=== PATIENT | female | born 1985 | race Caucasian/White ===

== ENCOUNTER 2016-12-07 12:37 | Emergency (ER) | payer OTHER ==
[~2016-12-07] VITALS: Ht 165.1 cm; Wt 90.8 kg
[~2016-12-07 12:37] MED LIST: ACHD5005 PO; AMT50T; DCS100C PO; DESV50TA PO; IBP600T1 PO; IBP800T PO; LRZ1T PO; MEDR5TAB4 PO; NAPR-243 PO; ONDAN4ODT PO; ORTHO; OXYC-12 PO; PAXIL 20 MG; PREN1TAB39 PO; SULF1TAB38 PO; TRAM50TA2 PO; TRM50T PO; VISTARIL
[2016-12-07 12:57] LABS: BASOPHILS % (AUTO) 0 % (0-10); EOSINOPHILS # (AUTO) 0.1 10^3/uL (0.0-0.3); EOSINOPHILS % (AUTO) 2 % (0-10); LYMPHOCYTES # (AUTO) 1.7 X 10^3 (1.0-4.0); LYMPHOCYTES % (AUTO) 29 % (12-44); MEAN CORPUSCULAR HEMOGLOBIN 27 PG (25-34); MEAN CORPUSCULAR HGB CONC 33 G/DL (32-36); MEAN CORPUSCULAR VOLUME 81 FL (80-99); MEAN PLATELET VOLUME 11.7 FL (7.4-10.4); MONOCYTES # (AUTO) 0.5 X 10^3 (0.0-1.0); MONOCYTES % (AUTO) 8 % (0-12); NEUTROPHILS # (AUTO) 3.6 X 10^3 (1.8-7.8); NEUTROPHILS % (AUTO) 61 % (42-75); PLATELET COUNT 197 10^3/uL (130-400); RED BLOOD COUNT 4.94 10^6/uL (4.35-5.85); RED CELL DISTRIBUTION WIDTH 14.8 % (10.0-14.5); WHITE BLOOD COUNT 5.9 10^3/uL (4.3-11.0)
--- NOTE | 2016-12-07 12:57 | ED GU-Female ---
General Chief Complaint: -Female Stated Complaint: MENSTRUAL ISSUES (HEAVY BLEEDING) Nursing Triage Note: PT STATES HEAVY MENSTRAL BLEEDING, NORMAL HAS TWO PERIODS A MONTH, CHANGING TAMPONS ONCE AN HOUR FOR THE PAST DAY NON STOP. Nursing Sepsis Screen: No Definite Risk Source: patient Exam Limitations: no limitations History of Present Illness Time seen by provider: 12:54 Initial Comments To ER with reports of heavy vaginal bleeding since yesterday to the point that she is changing tampons about every 1-2 hours. She also has severe abdominal cramping. She's been working with her primary care provider at [facility] , DIRK Clinton about arranging a hysterectomy. Patient states she is having difficulty with her insurance. She has, however, had pelvic ultrasound and colposcopy done by someone from [place] who comes to the clinic once a month (she cannot recall the name). She states that the abnormal menses have been bothering her since March with a bout of bleeding about twice a month. Timing/Duration: just prior to arrival Severity/Quality: moderate, cramping Location: unknown Radiation: none Activities at Onset: none Prior Genitourinary Problems: none Associated Symptoms: No fever/chills, No nausea/vomiting Allergies and Home Medications Allergies Coded Allergies: morphine (Verified Allergy, Severe, SOA, HIVES, 01/29/12) Constitutional: see HPI, No chills, No fever EENTM: see HPI Respiratory: no symptoms reported Cardiovascular: no symptoms reported Genitourinary: no symptoms reported Musculoskeletal: no symptoms reported Skin: no symptoms reported Psychiatric/Neurological: No Symptoms Reported Endocrine: No Symptoms Reported Hematologic/Lymphatic: No Symptoms Reported Past Rypzyud-Ejrjno-Wwdguz Hx Patient Social History Recent Foreign Travel: No Contact w/Someone Who Travel: No Recent Infectious Disease Expo: No Immunizations Up To Date Tetanus Booster (TDap): More than 5yrs Surgeries HX Surgeries: Yes (THA.;TONSILS AND ADAMARIS.;;LOOP PROCEDURE) Respiratory Hx Respiratory Disorders: No Cardiovascular Hx Cardiac Disorders: No Neurological Hx Neurological Disorders: No Reproductive System Hx Reproductive Disorders: No Sexually Transmitted Disease: Yes (HPV) 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 Genitourinary Hx Genitourinary Disorders: No Gastrointestinal Hx Gastrointestinal Disorders: No Musculoskeletal Hx Musculoskeletal Disorders: No Endocrine Hx Endocrine Disorders: No HEENT HX ENT Disorders: No Psychosocial Hx Psychiatric Problems: No Integumentary HX Skin/Integumentary Disorder: No Blood Transfusions Hx Blood Disorders: No Family Medical History Significant Family History: No Pertinent Family Hx Physical Exam Vital Signs Vital Sign - Last 12Hours 12/07/16 12:49 Temp 98.4 Pulse 75 Resp 20 B/P (MAP) 146/97 Pulse Ox 97 O2 Delivery Room Air Capillary Refill : Less Than 3 Seconds General Appearance: WD/WN, no apparent distress HEENT: PERRL/EOMI, normal ENT inspection Neck: non-tender, full range of motion Cardiovascular: regular rate, rhythm, no murmur Respiratory: normal breath sounds, no respiratory distress, no accessory muscle use Gastrointestinal: normal bowel sounds, non tender, soft Extremities: normal range of motion, non-tender Neurologic/Psychiatric: alert, normal mood/affect, oriented x 3 Skin: normal color Comments She does request something for pain though she requests that it not be narcotic as she is a former IV drug user. Benadryl and Toradol ordered Progress/Results/Core Measures Results/Orders Lab Results Laboratory Tests Test 12/07/16 12:50 12/07/16 13:00 Range/Units White Blood Count 5.9 4.3-11.0 10^3/uL Red Blood Count 4.94 4.35-5.85 10^6/uL Hemoglobin 13.2 11.5-16.0 G/DL Hematocrit 40 35-52 % Mean Corpuscular Volume 81 80-99 FL Mean Corpuscular Hemoglobin 27 25-34 PG Mean Corpuscular Hemoglobin Concent 33 32-36 G/DL Red Cell Distribution Width 14.8 H 10.0-14.5 % Platelet Count 197 130-400 10^3/uL Mean Platelet Volume 11.7 H 7.4-10.4 FL Neutrophils (%) (Auto) 61 42-75 % Lymphocytes (%) (Auto) 29 12-44 % Monocytes (%) (Auto) 8 0-12 % Eosinophils (%) (Auto) 2 0-10 % Basophils (%) (Auto) 0 0-10 % Neutrophils # (Auto) 3.6 1.8-7.8 X 10^3 Lymphocytes # (Auto) 1.7 1.0-4.0 X 10^3 Monocytes # (Auto) 0.5 0.0-1.0 X 10^3 Eosinophils # (Auto) 0.1 0.0-0.3 10^3/uL Basophils # (Auto) 0.0 0.0-0.1 10^3/uL My Orders Orders - LINDSEY SOTO APRN Cbc With Automated Diff (12/07/16 12:42) Urine Bedside (12/07/16 12:42) Ua Culture If Indicated (12/07/16 12:42) Diphenhydramine Injection (Benadryl Inje (12/07/16 13:00) Ketorolac Injection (Toradol Injection) (12/07/16 13:00) Medications Given in ED Current Medications Medications Dose Ordered Sig/Stoney Route Start Time Stop Time Status Last Admin Dose Admin Diphenhydramine HCl 25 mg ONCE ONCE IM 12/07/16 13:00 12/07/16 13:01 DC 12/07/16 13:11 25 MG Ketorolac Tromethamine 60 mg ONCE ONCE IM 12/07/16 13:00 12/07/16 13:01 DC 12/07/16 13:11 60 MG Vital Signs/I&O Vital Sign - Last 12Hours 12/07/16 12/07/16 12/07/16 12:49 13:11 13:11 Temp 98.4 98.4 98.4 Pulse 75 Resp 20 B/P (MAP) 146/97 Pulse Ox 97 O2 Delivery Room Air Blood Pressure Mean: 113 Departure Impression Impression: Primary Impression: Menorrhagia Disposition: 01 HOME, SELF-CARE Condition: Stable Departure-Patient Inst. Decision time for Depature: 13:17 Referrals: [facility] (PCP) Primary Care Physician DIRK CLINTON (Family) Primary Care Physician Patient Instructions: Menstrual Cramps (DC) Add. Discharge Instructions: 1. Follow-up with Dr. Cheng or your regular provider 2. Return to ER for any concerns 3. Ibuprofen 800 mg every 8 hours. This will reduce the blood flow to your uterine lining which will reduce the bleeding in 1-2 days. Return to ER for any lightheadedness or shortness of breath All discharge instructions reviewed with patient and/or family. Voiced understanding. Work/School Note: Work Release Form Date Seen in the Emergency Department: Dec 07, 2016 Return to Work: Dec 10, 2016 LINDSEY SOTO APRN Dec 07, 2016 12:57
[2016-12-07] MEDS ORDERED: KETOROLAC 60 MG/2 ML VIAL IM ONE (13:00)
[2016-12-07] MEDS ORDERED: diphenhydrAMINE 50 MG/ML INJ (BENADRYL) IM ONE (13:00)
[2016-12-07 13:11] LABS: BILIRUBIN,URINE NEGATIVE (NEGATIVE); KETONES,URINE NEGATIVE (NEGATIVE); LEUKOCYTE ESTERASE ,URINE 1+ (NEGATIVE); NITRITE,URINE NEGATIVE (NEGATIVE); PH,URINE 7 (5-9); PROTEIN,URINE NEGATIVE (NEGATIVE); UROBILINOGEN,URINE NORMAL (NORMAL)
[2016-12-07 13:19] LABS: WBC,URINE 0-2 /HPF
[2016-12-07 13:31] VITALS: BP 146/97
--- OUTSIDE RECORDS SUMMARY | 2016-12-08 17:51 | XMS REPORT | Continuity of Care Document ---
Author Author [employer] Organization [employer] Address Unknown Phone Unavailable Care Team Providers Care Head Host/Hostess Name Role Phone [employer] Unavailable Unavailable Problems Medications Allergies, Adverse Reactions, Alerts Immunizations Results Vital Signs Encounters Procedures Plan of Care Social History Assessment and Plan Family History Value Date Source Advance Directives Order Name Results Value Date Source
--- OUTSIDE RECORDS SUMMARY | 2016-12-08 17:51 | XMS REPORT ---
Author Author DIRK CLINTON Organization [employer] Address Unknown Phone Unavailable Care Team Providers Care Professor Of Latin American Studies Name Role Phone DIRK CLINTON CP Unavailable Allergies, Adverse Reactions, Alerts Substance Reaction Event Type Morphine Sulfate shortness of breath Drug Allergy Problems Problem Type Condition Code Onset Dates Condition Status Problem Chronic hepatitis C without mention of hepatic coma 070.54 Active Problem Other, mixed, or unspecified nondependent drug abuse, unspecified 305.90 Active Problem Dysuria 788.1 Active Medications No Known Medications Results No Known Results Summary Purpose [employer] Submission
--- OUTSIDE RECORDS SUMMARY | 2016-12-08 17:52 | XMS REPORT | Continuity of Care Document ---
Author Author [facility] Organization [facility] Address Unknown Phone Unavailable Allergies Medications Problems Date Dx Coded Attending Type Code Diagnosis Diagnosed By 12/05/2008 DIRK CLINTON APRN 461.9 SINUSITIS ACUTE 12/05/2008 DIRK CLINTON APRN 919.4 INSECT BITE NONVENOMOUS OF OTHER MULTIPLE AND UNSPECIFIED SITES WITHOUT INFECTION 12/05/2008 DENNIS JACOBS DO 461.9 SINUSITIS ACUTE 12/05/2008 DENNIS JACOBS DO K 919.4 INSECT BITE NONVENOMOUS OF OTHER MULTIPLE AND UNSPECIFIED SITES WITHOUT INFECTION 05/28/2014 DIRK CLINTON APRN 070.54 CHRONIC HEPATITIS C WITHOUT HEPATIC COMA 05/28/2014 DIRK CLINTON APRN L 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 USE 05/28/2014 DENNIS JACOBS DO K 070.54 CHRONIC HEPATITIS C WITHOUT HEPATIC COMA 05/28/2014 DENNIS JACOBS DO K 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 USE Procedures Code [place] [address] CMP 05/28/2014 78332 CBC 05/28/2014 91945 PT/INR 2013 76785 HIV ANTIBODIES (RML) 05/28/2014 47556 HEP B SURFACE ANTIBODY 05/28/2014 50094 HEP A ANTIBODY, IGM (RML) 05/28/2014 64796 HEP B SURFACE ANTIGEN (STATE) 05/28/2014 32355 HEP C PCR QUANT W/UMESH 05/28/2014 82275 [employer] 2013 03088 CMP 05/28/2014 21337 CBC 05/28/2014 75653 PT/INR 2013 31782 HIV ANTIBODIES (RML) 05/28/2014 43712 HEP B SURFACE ANTIBODY 05/28/2014 85422 HEP A ANTIBODY, IGM (RML) 05/28/2014 35772 HEP B SURFACE ANTIGEN (STATE) 05/28/2014 65159 HEP C PCR QUANT W/UMESH 05/28/2014 76996 [employer] 2013 48030 ROUTINE VENIPUNCTURE 05/30/2014 23577 CBC 05/30/2014 32624 CMP 05/30/2014 34798 PT/INR 2013 18651 HIV ANTIBODIES (RML) 05/30/2014 57197 HEP B CORE ANTIBODY, IGM 05/30/2014 41370 HEP B SURFACE ANTIBODY 05/30/2014 06289 HEP A ANTIBODY, IGM (RML) 05/30/2014 49362 [employer] 2013 Results Encounters ACCT No. Visit Date/Time Discharge Status Pt. Type Provider Facility Loc./Unit Complaint [id number] 03/02/2013 13:09:00 2012 15:00:00 DIS Emergency [id number] 02/25/2013 12:02:00 2012 17:00:00 DIS Emergency
== END 2016-12-07 13:31 | disposition home or self-care (01) ==
LOC: EDUNIT# 12:37 → ER 12:40
DX: N92.0 Excessive and frequent menstruation with regular cycle (principal); Z90.49 Acquired absence of other specified parts of digestive tract; Z87.59 Personal history of other complications of pregnancy, childbirth and the puerperium; Z98.51 Tubal ligation status; Z86.19 Personal history of other infectious and parasitic diseases
CPT/HCPCS: 36415; 81000; 84703; 85025; 96372; 99284

== ENCOUNTER → 2017-01-15 | Outpatient (CLI) | payer OTHER ==
--- NOTE | 2017-01-15 18:56 | Diagnostic Imaging Report ---
INDICATION: Menorrhagia. Pelvic sonogram. FINDINGS: Transabdominal and endovaginal scanning of the pelvis was performed. The uterus measures 9.6 x 5.0 x 4.8 cm. Endometrial stripe is 8 mm. The myometrium and endometrium appear normal. The ovaries are normal in size and have normal blood flow. There is a 3 cm cyst on the right ovary that has simple cyst features. IMPRESSION: A 3 cm simple cyst right ovary. Pelvic sonogram otherwise unremarkable. Dictated by: Dictated on workstation # [id number]
== END ==
LOC: RAD 13:16
PROVIDERS: ATTEND Nurse Practitioner Family
DX: N83.201 Unspecified ovarian cyst, right side (principal); N92.1 Excessive and frequent menstruation with irregular cycle
CPT/HCPCS: 76830; 76856

== ENCOUNTER 2018-09-16 10:05 | Emergency (ER) | payer OTHER ==
[~2018-09-16] VITALS: Ht 162.6 cm; Wt 108.9 kg
[2018-09-16 10:28] LABS: BASOPHILS % (AUTO) 0 % (0-10); EOSINOPHILS # (AUTO) 0.2 10^3/uL (0.0-0.3); EOSINOPHILS % (AUTO) 3 % (0-10); HEMATOCRIT 41 % (35-52); HEMOGLOBIN 13.5 G/DL (11.5-16.0); LYMPHOCYTES # (AUTO) 1.4 X 10^3 (1.0-4.0); LYMPHOCYTES % (AUTO) 21 % (12-44); MEAN CORPUSCULAR HEMOGLOBIN 27 PG (25-34); MEAN CORPUSCULAR HGB CONC 33 G/DL (32-36); MEAN CORPUSCULAR VOLUME 80 FL (80-99); MEAN PLATELET VOLUME 11.2 FL (7.4-10.4); MONOCYTES # (AUTO) 0.6 X 10^3 (0.0-1.0); MONOCYTES % (AUTO) 9 % (0-12); NEUTROPHILS # (AUTO) 4.6 X 10^3 (1.8-7.8); NEUTROPHILS % (AUTO) 68 % (42-75); PLATELET COUNT 230 10^3/uL (130-400); RED CELL DISTRIBUTION WIDTH 14.1 % (10.0-14.5); WHITE BLOOD COUNT 6.8 10^3/uL (4.3-11.0)
[2018-09-16] MEDS ORDERED: LIDOCAINE 2% VISCOUS 15 ML UDC PO ONE (10:30)
[2018-09-16] MEDS ORDERED: ANTACID SUSP 30 ML UDC (MYLANTA) PO ONE (10:30)
--- OUTSIDE RECORDS SUMMARY | 2018-09-16 10:43 | XMS REPORT | Clinical Summary ---
Author Author Admin, E Organization [facility] Address Unknown Phone Unavailable Allergies, Adverse Reactions, Alerts Allergy Name Reaction Description Start Date Severity Status Provider MORPHINE Critical Active Isidra Boland RN Conditions or Problems Problem Name Problem Code Onset Date Status Entry Date Provider Comment Standard Description Annotate Menorrhea, premenopausal 627.0 Active Jerry Wells MD Premenopausal menorrhagia Medication List Medication Instructions Start Date Stop Date Generic Name NDC Status Provider Patient Instruction No Drug Therapy Prescribed - none known did ask Isidra Boland RN Vital Signs Date Name Value Unit Range Description blood pressure, diastolic 82 mm[Hg] BP bhakta blood pressure, systolic 142 mm[Hg] BP sys height E&M 65 [in_us] Bdy height pulse rate E&M 63 /min Heart rate temperature E&M 95.5 [degF] Body temperature weight E&M 223 [lb_av] Weight Measured Encounters Code Encounter Date Provider Facility CPT-53698 Level 4 New Patient 16:28:07 CDT Jerry Wells MD [facility]
--- OUTSIDE RECORDS SUMMARY | 2018-09-16 10:43 | XMS REPORT | Clinical Summary ---
Author Author Admin, E Organization [facility] Address Unknown Phone Unavailable Allergies, Adverse Reactions, [...] Measured Encounters Code Encounter Date Provider Facility CPT-68468 Level 4 New Patient 16:28:07 CDT Jerry Wells MD [facility]
--- OUTSIDE RECORDS SUMMARY | 2018-09-16 10:43 | XMS REPORT | Clinical Summary ---
Author Author Admin, E Organization [facility] Address Unknown Phone Unavailable Allergies, Adverse Reactions, Alerts Allergy Name Reaction Description Start Date Severity Status Provider MORPHINE Critical Active Isidra Boland RN Conditions or Problems Problem Name Problem Code Onset Date Status Entry Date Provider Comment Standard Description Annotate Problems Unknown Active Medication List Medication Instructions Start Date Stop Date Generic Name NDC Status Provider Patient Instruction Drug Treatment Unknown - unknown
--- OUTSIDE RECORDS SUMMARY | 2018-09-16 10:43 | XMS REPORT | Clinical Summary ---
Author Author Admin, E Organization [facility] Address Unknown Phone Unavailable Allergies, Adverse Reactions, [...] Measured Encounters Code Encounter Date Provider Facility CPT-06718 Level 4 New Patient 16:28:07 CDT Jerry Wells MD [facility]
--- OUTSIDE RECORDS SUMMARY | 2018-09-16 10:43 | XMS REPORT ---
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.0 Active 289789340 Problem Chronic hepatitis C without mention of hepatic coma 070.54 Active 460455110 Problem Other, mixed, or unspecified nondependent drug abuse, unspecified 305.90 Active 584520397 ALLERGIES No Information ENCOUNTERS Encounter Location Date Diagnosis [place] [id number] [place] [address] Dec, [place] [address] [address] Dec, [place] [id number] [place] [address] Dec, Menorrhagia with irregular cycle N92.1 [place] [id number] [place] [address]151 Aug, [place] [id number] [place] [address] Aug, Atypical squamous cells of undetermined significance on cytologic smear of cervix (ASC-US) R87.610 and HPV (human papilloma virus) infection A63.0 [place] [id number] [place] [address]- [address] Jul, [place] [id number] [place] [address]- [address] Jul, Routine gynecological examination Z01.419 and Trichomonal vaginitis A59.01 [facility] [address] [facility] [id number] [address] Apr, General medical exam Z00.00 [facility] [address] [id number] [address] Mar, [facility] [address] [facility] [id number] [place] [address] Aug, [facility] [address] [id number] [address] Aug, [facility] [address] [facility] [id number] [place] [address]- [address] Jul, [facility] [address] [facility] [id number] [place] [address]- [address] Jul, [facility] [address] [facility] [id number] [place] [address]- [address] Jul, [facility] [address] [facility] [id number] [address] Jul, [facility] [id number] [place] [address]- [address]58 Jul, [facility] [address] [id number] [address] May, [facility] [address] [facility] [id number] [place] [address] May, [facility] [address] [facility] [id number] [place] [address] May, [facility] [address] [facility] [id number] [place] [address] May, [facility] [address] [facility] [id number] [place] [address] May, [facility] [address] [address] May, [facility] [id number] [address] May, [facility] [address] [address] May, [facility] [address] [address] May, [facility] [address] [address] May, [facility] [address] [address] Apr, [facility] [id number] [place] [address] 609823- 28[address] Apr, [facility] [address] [address] Apr, [facility] [address] [address] Apr, [facility] [id number] [address] Nov, IMMUNIZATIONS No Known Immunizations SOCIAL HISTORY Never Assessed REASON FOR VISIT Referral PLAN OF CARE VITAL SIGNS MEDICATIONS Unknown Medications RESULTS No Results PROCEDURES No Known procedures INSTRUCTIONS MEDICATIONS ADMINISTERED No Known Medications MEDICAL (GENERAL) HISTORY Type Description Date Medical History IV Meth and Heroine Abuse 2013 Medical History Hepatitis C Surgical History tonsillectomy and adenoidectomy 1990 Surgical History cholecystectomy 2004 Surgical History ganglion cyst 2000 Hospitalization History of children Hospitalization History surgeries listed above
--- OUTSIDE RECORDS SUMMARY | 2018-09-16 10:43 | XMS REPORT | Clinical Summary ---
Author Author Admin, E Organization [facility] Address Unknown Phone Unavailable Allergies, Adverse [...] Measured Encounters Code Encounter Date Provider Facility CPT-33099 Level 4 New Patient 16:28:07 CDT Jerry Wells MD [facility]
--- OUTSIDE RECORDS SUMMARY | 2018-09-16 10:43 | XMS REPORT ---
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 Active 723027182 Problem Menorrhagia with irregular cycle N92.1 Active 132046734 Problem Other chronic pain G89.29 Active 90441008 Problem Chronic hepatitis C without hepatic coma B18.2 Active 165299640 ALLERGIES No Information ENCOUNTERS Encounter Location Date Diagnosis [place] [id number] [place] [address] 49861- 2676 11 Jul, 2018 Weight gain R63.5 [place] [id number] [place] [address] 30984- 3596 May, [place] [id number] [place] [address] 39731- 4929 Apr, Morbid obesity due to excess calories E66.01 [place] [id number] [place] [address] 58325- 0173 14 Apr, 2018 BMI 40.0-44.9, adult Z68.41 and Morbid obesity due to excess calories E66.01 [place] [address] [place] [address] 69955- 2820 Mar, [place] [id number] [place] [address] 38429- 4807 Mar, Morbid obesity due to excess calories E66.01 [place] [id number] [place] [address] 21048- 5573 Feb, [place] [address] [address] 8070 15 Feb, 2018 BMI 40.0-44.9, adult Z68.41 [facility] [address] [place] [address] 33900- 5760 Jan, BMI 40.0-44.9, adult Z68.41 and Non morbid obesity E66.9 [facility] [address] [place] [address] 95736- 2422 Dec, Non morbid obesity E66.9 [facility] [id number] [place] [address] 82392- 5494 Nov, Rash R21 ; Other chronic pain G89.29 ; Pain in right hip M25.551 and Pain in right knee M25.561 [facility] [address], [place] [address]- 7276 Oct, Right hip pain M25.551 [facility] [id number] [place] [address] 84336- 8452 Oct, [facility] [id number] [place] [address] 16967- 0552 Oct, Other chronic pain G89.29 and Pain in right hip M25.551 [facility] [address] [address]- 4480 Oct, [facility] [address] [place] [address] 14756- 8800 Oct, Right hip pain M25.551 [facility] [address] [address]- 0896 Oct, Right hip pain M25.551 [facility] [address] [address]- 6917 Dec, [facility] [address], [place] [address]- 3713 Dec, [facility] [id number] [place] [address] 06286- 8925 Dec, Menorrhagia with irregular cycle N92.1 [facility] [address] 189591- 6546 Aug, [facility] [id number] [place] [address] 72071- 7839 Aug, Atypical squamous cells of undetermined significance on cytologic smear of cervix (ASC-US) R87.610 and HPV (human papilloma virus) infection 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.0 [facility] [id number] [place] [address] 309509- 7760 Jul, [facility] [id number] [place] [address] 50618- 7647 Jul, Routine gynecological examination Z01.419 and Trichomonal vaginitis A59.01 [facility] [id number] [place] [address] 39051- 4028 Apr, General medical exam Z00.00 [facility] [id number] [place] [address] 63726- 2769 Mar, [facility] [id number] [place] [address] 36649- 3365 Aug, [facility] [id number] [place] [address] 86769- 9325 Aug, [facility] [id number] [place] [address] 60983- 9195 Jul, [facility] [id number] [place] [address] 304593- 2628 Jul, [facility] [id number] [place] [address] 54273162- 8307 Jul, [facility] [id number] [place] [address] 243711- 8548 Jul, [facility] [id number] [place] [address] 64130- 7448 Jul, [facility] [address] [facility] [id number] [address]- 1676 May, [facility] [address] [facility] [id number] 6065 May, [facility] [address] [facility] [id number] [address]- 0727 May, [facility] [address] [facility] [id number], [place] [address]- 1208 May, [facility] [address] [facility] [id number], [place] [address]- 2543 May, [facility] [address] [facility] [id number] [address]- 1569 May, [facility] [address], [place] [address]- 7085 May, [facility] [address] [facility] [id number], [place] [address]- 9957 May, [facility] [address] [facility] [id number][place] [address]- 6755 May, [facility] [address] [facility] [id number][place] [address]- 3592 May, [facility] [address] [facility] [id number], [place] [address]- 7782 Apr, [facility] [address] [facility] [id number] [address]- 4547 Apr, [facility] [address] [facility] [id number] [address]- 8406 Apr, [facility] [address] [facility] [id number][place] 0387 Apr, [facility] [address] [facility] [id number][place] 9389 Nov, IMMUNIZATIONS No Known Immunizations SOCIAL HISTORY Never Assessed REASON FOR VISIT [facility] PLAN OF CARE VITAL SIGNS MEDICATIONS Unknown Medications RESULTS No Results PROCEDURES No Known procedures INSTRUCTIONS MEDICATIONS ADMINISTERED No Known Medications MEDICAL (GENERAL) HISTORY Type Description Date Medical History IV Meth and Heroine Abuse 2013 Medical History Hepatitis C Surgical History tonsillectomy and adenoidectomy 1990 Surgical History cholecystectomy 2004 Surgical History ganglion cyst 2000 Surgical History partial hysterectomy 2017 Hospitalization History of children Hospitalization History surgeries listed above
--- OUTSIDE RECORDS SUMMARY | 2018-09-16 10:43 | XMS REPORT | Clinical Summary ---
Author Author Admin, E Organization [facility] Address Unknown Phone Unavailable Allergies, [...]
--- OUTSIDE RECORDS SUMMARY | 2018-09-16 10:44 | XMS REPORT ---
Author Author Migration, Doctor Organization [facility] Address Unknown Phone Unavailable Care Team Providers Care Instructional Paraprofessional Name Role Phone Migration, Doctor Unavailable Unavailable PROBLEMS Type Condition ICD9-CM Code HVZ30-AU Code Onset Dates Condition Status SNOMED Code Problem Non morbid obesity E66.9 Active 927327418 Problem Morbid obesity due to excess calories E66.01 Active 646131245 Problem HPV (human papilloma virus) infection A63.0 Active 413067700 Problem Menorrhagia with irregular cycle N92.1 Active 886887137 Problem Other chronic pain G89.29 Active 72483032 Problem Chronic hepatitis C without hepatic coma B18.2 Active 242316942 ALLERGIES No Information ENCOUNTERS Encounter Location Date Diagnosis [place] [id number] [place] [address] 59043- 1865 11 Jul, 2018 Weight gain R63.5 [place] [id number] [place] [address] 45688- 8049 May, [place] [id number] [place] [address] 46600- 6609 Apr, Morbid obesity due to excess calories E66.01 [place] [id number] [place] [address] 33156- 2496 14 Apr, 2018 BMI 40.0-44.9, adult Z68.41 and Morbid obesity due to excess calories E66.01 [place] [address] [place] [address] 52833- 6837 Mar, [place] [id number] [place] [address] 14640- 6794 Mar, Morbid obesity due to excess calories E66.01 [place] [id number] [place] [address] 48827- 6580 Feb, [place] [address], [place] [address]- 6204 15 Feb, 2018 BMI 40.0-44.9, adult Z68.41 [facility] [address] [place] [address] 70884- 3001 Jan, BMI 40.0-44.9, adult Z68.41 and Non morbid obesity E66.9 [facility] [address] [place] [address] 94077- 3370 Dec, Non morbid obesity E66.9 [facility] [id number] [place] [address] 52524- 9825 Nov, Rash R21 ; Other chronic pain G89.29 ; Pain in right hip M25.551 and Pain in right knee M25.561 [facility] [address], [place] [address]- 5203 Oct, Right hip pain M25.551 [facility] [id number] [place] [address] 37379- 1853 Oct, [facility] [id number] [place] [address] 79338- 1827 Oct, Other chronic pain G89.29 and Pain in right hip M25.551 [facility] [address], [place] [address]- 0079 Oct, [facility] [address] [place] [address] 01691- 3660 Oct, Right hip pain M25.551 [facility] [address], [place] [address]- 0206 Oct, Right hip pain M25.551 [facility] [address], [place] [address]- 0239 Dec, [facility] [address], [place] [address]- 6744 Dec, [facility] [id number] [place] [address] 87615- 9399 Dec, Menorrhagia with irregular cycle N92.1 [facility] [address] 040521- 9999 Aug, [facility] [id number] [place] [address] 89939- 0300 Aug, Atypical squamous cells of undetermined significance on cytologic smear of cervix (ASC-US) R87.610 and HPV (human papilloma virus) infection A63.0 [facility] [id number] [place] [address] 202276- 9488 Jul, [facility] [id number] [place] [address] 15532- 6840 Jul, Routine gynecological examination Z01.419 and Trichomonal vaginitis A59.01 [facility] [id number] [place] [address] 97599- 9879 Apr, General medical exam Z00.00 [facility] [id number] [place] [address] 27028- 5132 Mar, [facility] [id number] [place] [address] 40916- 2529 Aug, [facility] [id number] [place] [address] 92218- 9752 Aug, [facility] [id number] [place] [address] 98832- 5299 Jul, [facility] [id number] [place] [address] 932275- 4075 Jul, [facility] [id number] [place] [address] 86156207- 0543 Jul, [facility] [id number] [place] [address] 540567- 6949 Jul, [facility] [id number] [place] [address] 91126- 9098 Jul, [facility] [address] [facility] [id number], [place] [address]- 2218 May, [facility] [address] [facility] [id number] 8600 May, [facility] [address] [facility] [id number], [place] [address]- 7362 May, [facility] [address] [facility] [id number], [place] [address]- 7896 May, [facility] [address] [facility] [id number], [place] [address]- 1047 May, [facility] [address] [facility] [id number], [place] [address]- 5516 May, [facility] [address], [place] [address]- 0505 May, [facility] [address] [facility] [id number], [place] [address]- 1396 May, [facility] [address] [facility] [id number], [place] [address]- 1348 May, [facility] [address] [facility] [id number], [place] [address]- 0189 May, [facility] [address] [facility] [id number], [place] [address]- 0827 Apr, [facility] [address] [facility] [id number], [place] [address]- 1956 Apr, [facility] [address] [facility] [id number], [place] [address]- 2837 Apr, [facility] [address] [facility] [id number][place]- 1591 Apr, [facility] [address] [facility] [id number]- 0070 Nov, IMMUNIZATIONS No Known Immunizations SOCIAL HISTORY Never Assessed REASON FOR VISIT [facility] PLAN OF CARE VITAL SIGNS MEDICATIONS Medication Instructions Dosage Frequency Start Date End Date Duration Status amitriptyline 25 mg 1 tablet by Oral route 1 time per day Jul, Active Pyridium 200 mg 1 tablet by Oral route 3 times per day for 3 day(s) for bladder pain Jul, Active Paxil 20 mg 1 tablet by Oral route 1 time per day Jul, Active RESULTS No Results PROCEDURES No Known procedures [...]
--- OUTSIDE RECORDS SUMMARY | 2018-09-16 10:44 | XMS REPORT ---
Author Author RIVAS MICHAELS Organization [facility] Address [address] [place] [address] Care Team Providers Care Conveyor System Dispatcher Name Role Phone RIVAS MICHAELS Unavailable PROBLEMS Type Condition ICD9-CM Code UBR27-LN Code Onset Dates Condition Status SNOMED Code Problem Morbid obesity due to excess calories E66.01 Active 067995560 Problem Non morbid obesity E66.9 Active 623547737 Problem Menorrhagia with irregular cycle N92.1 Active 633892602 Problem HPV (human papilloma virus) infection A63.0 Active 852690778 Problem Chronic hepatitis C without hepatic coma B18.2 Active 793557526 Problem Other chronic pain G89.29 Active 50520915 ALLERGIES No Information ENCOUNTERS Encounter Location Date Diagnosis [place] [address] [address]- 9902 Apr, [place] [address] 62409- 3846 Mar, [place] [address] 85112- 2648 Mar, Morbid obesity due to excess calories E66.01 [place] [id number] [place] [address] 49955- 4267 16 Feb, 2018 [place] [address] 15938- 7376 Feb, BMI 40.0-44.9, adult Z68.41 [place] [address] 79065- 4471 Jan, BMI 40.0-44.9, adult Z68.41 and Non morbid obesity E66.9 [place] [address] 01126- 5385 Dec, Non morbid obesity E66.9 [facility] [id number] [place] [address] 64391- 8101 Nov, Rash R21 ; Other chronic pain G89.29 ; Pain in right hip M25.551 and Pain in right knee M25.561 [facility] [id number] [place] [address] 56281- 0466 Oct, Right hip pain M25.551 [facility] [id number] [place] [address] 79874- 0351 Oct, [facility] [address] [id number] [place] [address] 09089- 7083 Oct, Other chronic pain G89.29 and Pain in right hip M25.551 [facility] [id number] [place] [address] 14880- 9176 Oct, [facility] [id number] [place] [address] 94711- 2397 Oct, Right hip pain M25.551 [facility] [id number] [place] [address] 69011- 9084 Oct, Right hip pain M25.551 [facility] [id number] [place] [address] 25418- 4631 Dec, [facility] [id number] [place] [address] 40500- 5741 Dec, [facility] [id number] [place] [address] 43569- 2459 Dec, Menorrhagia with irregular cycle N92.1 [facility] [id number] [place] [address] 07035- 6183 Aug, [facility] [address] [place] [address] 05698- 7439 Aug, Atypical squamous cells of undetermined significance on cytologic smear of cervix (ASC-US) R87.610 and HPV (human papilloma virus) infection A63.0 [facility] [address] [address]- 9483 Jul, [facility] [id number] [place] [address] 779061- 1985 Jul, Routine gynecological examination Z01.419 and Trichomonal vaginitis A59.01 [facility] [id number] [place] [address] 265798- 1149 Apr, General medical exam Z00.00 [facility] [address], [place] [address]- 8052 Mar, [facility] [id number] [place] [address] 78090- 4652 Aug, [facility] [id number] [place] [address] 37979- 8097 Aug, [facility] [address] [place] [address] 52213- 5339 Jul, [facility] [address] [address]- 4976 Jul, [facility] [address], [place] [address]- 3545 Jul, [facility] [address], [place] [address]- 0363 Jul, [facility] [address], [place] [address]- 5657 Jul, [facility] [address]- 0831 May, [facility] [id number] [place] [address] 151762- 7636 May, [facility] [address]- 0792 May, [facility] [address], [place] [address]- 3258 May, [facility] [address] 8936 May, [facility] [address] [facility] [id number]- 9542 May, [facility] [address], [place] [address]- 6495 May, [facility] [address], [place] [address]- 5874 May, [facility] [address]- 7216 May, [facility] [address] 5508 May, [facility] [address], [place] [address]- 8521 Apr, [facility] [address], [place] [address]- 8007 Apr, [facility] [address], [place] [address]- 1809 Apr, [facility] [address] [place] [id number], [place] [address]- 6847 Apr, [facility] [address] [place] [id number] 0738 Nov, IMMUNIZATIONS No Known Immunizations SOCIAL HISTORY Never Assessed REASON FOR VISIT requesting return call/ PLAN OF CARE VITAL SIGNS MEDICATIONS Unknown Medications RESULTS No Results PROCEDURES No Known procedures INSTRUCTIONS MEDICATIONS ADMINISTERED No Known Medications MEDICAL (GENERAL) HISTORY Type Description Date Medical History IV Meth and Heroine Abuse 2013 Medical History Hepatitis C Surgical History tonsillectomy and adenoidectomy 1990 Surgical History cholecystectomy 2005 Surgical History ganglion cyst 2001 Surgical History partial hysterectomy 2017 Hospitalization History of children Hospitalization History surgeries listed above
--- OUTSIDE RECORDS SUMMARY | 2018-09-16 10:44 | XMS REPORT ---
Author Author RIVAS MICHAELS Organization [facility] Address [address] [place] [address] Care Team Providers Care Freight Coordinator Name Role Phone RIVAS MICHAELS Unavailable PROBLEMS Type Condition ICD9-CM Code WEA35-SF Code Onset Dates Condition Status SNOMED Code Problem Non morbid obesity E66.9 Active 725749715 Problem Chronic hepatitis C without hepatic coma B18.2 Active 023893966 Problem HPV (human papilloma virus) infection A63.0 Active 105277349 Problem Other chronic pain G89.29 Active 06161017 Problem Menorrhagia with irregular cycle N92.1 Active 870757676 ALLERGIES No Information ENCOUNTERS Encounter Location Date Diagnosis [place] [id number] [place] [address] 71858- 8634 Jan, [place] [id number] [place] [address] 64984- 6382 Dec, Non morbid obesity E66.9 [place] [id number] [place] [address] 66433- 1397 Nov, Rash R21 ; Other chronic pain G89.29 ; Pain in right hip M25.551 and Pain in right knee M25.561 [place] [id number] [place] [address] 59488- 7084 Oct, Right hip pain M25.551 [place] [id number] [place] [address] 88207- 4092 Oct, [place] [id number] [place] [address] 34575- 1912 Oct, Other chronic pain G89.29 and Pain in right hip M25.551 [place] [address] 08399- 3057 Oct, [facility] [id number] [place] [address] 45615- 2560 Oct, Right hip pain M25.551 [facility] [id number] [place] [address] 40712- 8826 Oct, Right hip pain M25.551 [place] [id number] [place] [address] 79015- 8722 Dec, [place] [id number] [place] [address] 90581- 0871 Dec, [place] [address] 21539- 2641 Dec, Menorrhagia with irregular cycle N92.1 [place] [address] 01353- 1658 Aug, [place] [address] 24373- 7247 Aug, Atypical squamous cells of undetermined significance on cytologic smear of cervix (ASC-US) R87.610 and HPV (human papilloma virus) infection A63.0 [place] [id number] [place] [address] 87384- 2145 Jul, [place] [id number] [place] [address] 02358- 8971 Jul, Routine gynecological examination Z01.419 and Trichomonal vaginitis A59.01 [place] [id number] [place] [address] 51655- 3974 Apr, General medical exam Z00.00 [place] [address] 04847- 0340 15 Mar, 2016 [place] [id number] [place] [address] 17400- 1581 14 Aug, 2014 [place] [address] 33928- 3213 Aug, [facility] [place] [facility] [address] [id number] [place] [address]- 3071 Jul, [facility] [place] [facility] [address] [id number] [place] [address]- 3426 Jul, [facility] [place] [facility] [address] [id number] [place] [address]- 6416 Jul, [facility] [place] [facility] [address] [id number] [place] [address]- 9766 Jul, [facility] [place] [facility] [address] [id number] [place] [address]- 1242 Jul, [facility] [place] [facility] [address] [id number] [place] [address]- 5702 May, [facility] [place] [facility] [address] [id number] [place] [address]- 6904 May, [facility] [place] [facility] [address] [id number] [place] [address]- 0439 May, [facility] [place] [facility] [address] [id number] [place] [address]- 8475 May, [facility] [place] [facility] [address] [facility] [id number] [place] [address]- 7371 May, [facility] [place] [facility] [address] [id number] [place] [address]- 8342 May, [facility] [place] [facility] [address] [id number], [place] [address]- 9951 May, [facility] [place] [facility] [address] [id number] [place] [address]- 5536 May, [facility] [place] [facility] [address] [id number] [place] [address]- 8357 May, [facility] [place] [facility] [address] [id number], [place] [address]- 8876 May, [facility] [place] [facility] [address] [facility] [id number] [place] [address]- 67[address] Apr, [facility] [address] [facility] [id number] [address] 0[address] Apr, [facility] [address] [facility] [id number], [place] [address] 6935 Apr, [facility] [address] [facility] [id number], [place] [address]- 3314 Apr, [facility] [address] [facility] [id number], [place] [address]- 6045 Nov, IMMUNIZATIONS No Known Immunizations SOCIAL HISTORY Never Assessed REASON FOR VISIT Requests return call PLAN OF CARE VITAL SIGNS MEDICATIONS Unknown [...]
--- OUTSIDE RECORDS SUMMARY | 2018-09-16 10:44 | XMS REPORT ---
Author Author RIVAS MICHAELS Organization [facility] Address [address] [place] [address] Care Team Providers Care Research Scientist Name Role Phone RIVAS MICHAELS Unavailable PROBLEMS Type Condition ICD9-CM Code FDB85-AO Code Onset Dates Condition Status SNOMED Code Problem Non morbid obesity E66.9 Active 851064626 Problem Chronic hepatitis C without hepatic coma B18.2 Active 582750493 Problem HPV (human papilloma virus) infection A63.0 Active 234390392 Problem Other chronic pain G89.29 Active 14391788 Problem Menorrhagia with irregular cycle N92.1 Active 093726553 ALLERGIES No Information ENCOUNTERS Encounter Location Date Diagnosis [place] [id number] [place] [address] 12719- 6972 Jan, [place] [id number] [place] [address] 27887- 2132 Dec, Non morbid obesity E66.9 [place] [id number] [place] [address] 14904- 2039 Nov, Rash R21 ; Other chronic pain G89.29 ; Pain in right hip M25.551 and Pain in right knee M25.561 [place] [id number] [place] [address] 55276- 2109 Oct, Right hip pain M25.551 [place] [id number] [place] [address] 47588- 4376 Oct, [place] [id number] [place] [address] 78238- 9531 Oct, Other chronic pain G89.29 and Pain in right hip M25.551 [place] [address] [place] [address] 32651- 9672 Oct, [facility] [id number] [place] [address] 01552- 4177 Oct, Right hip pain M25.551 [facility] [id number] [place] [address] 63204- 3280 Oct, Right hip pain M25.551 [place] [id number] [place] [address] 19208- 6284 Dec, [place] [id number] [place] [address] 13117- 8296 Dec, [place] [address] 59544- 1197 Dec, Menorrhagia with irregular cycle N92.1 [place] [address] 61325- 9415 Aug, [place] [address] 02469- 5690 Aug, Atypical squamous cells of undetermined significance on cytologic smear of cervix (ASC-US) R87.610 and HPV (human papilloma virus) infection A63.0 [place] [id number] [place] [address] 86499- 8842 Jul, [place] [id number] [place] [address] 24376- 3629 Jul, Routine gynecological examination Z01.419 and Trichomonal vaginitis A59.01 [place] [id number] [place] [address] 10113- 0834 Apr, General medical exam Z00.00 [place] [address] 41738- 3775 15 Mar, 2016 [place] [id number] [place] [address] 87078- 1519 14 Aug, 2014 [place] [address] 88998- 9524 Aug, [facility] [place] [facility] [address] [id number] [place] [address]- 1428 Jul, [facility] [place] [facility] [address] [id number] [place] [address]- 8986 Jul, [facility] [place] [facility] [address] [id number] [place] [address]- 1146 Jul, [facility] [place] [facility] [address] [id number] [place] [address]- 3275 Jul, [facility] [place] [facility] [address] [id number] [place] [address]- 9032 Jul, [facility] [place] [facility] [address] [id number] [place] [address]- 9609 May, [facility] [place] [facility] [address] [id number] [place] [address]- 3454 May, [facility] [place] [facility] [address] [id number] [place] [address]- 7006 May, [facility] [place] [facility] [address] [id number] [place] [address]- 7007 May, [facility] [place] [facility] [address] [facility] [id number] [place] [address]- 4876 May, [facility] [place] [facility] [address] [id number] [place] [address]- 4436 May, [facility] [place] [facility] [address] [id number], [place] [address]- 7358 May, [facility] [place] [facility] [address] [id number] [place] [address]- 0443 May, [facility] [place] [facility] [address] [id number] [place] [address]- 8219 May, [facility] [place] [facility] [address] [id number], [place] [address]- 3491 May, [facility] [place] [facility] [address] [facility] [id number], [place] [address]- 5649 Apr, [facility] [address] [facility] [id number], [place] [address]- 8385 Apr, [facility] [address] [facility] [id number], [place] [address]- 7778 Apr, [facility] [address] [facility] [id number], [place] [address]- 6135 Apr, [facility] [address] [facility] [id number], [place] [address]- 1516 Nov, IMMUNIZATIONS No Known Immunizations SOCIAL HISTORY Never Assessed REASON FOR VISIT Medication refill PLAN OF CARE VITAL SIGNS MEDICATIONS Medication Instructions Dosage Frequency Start Date End Date Duration Status Tizanidine HCl 4 MG Orally Three times a day 1 capsule as needed 8h Oct 30 days Active RESULTS No Results PROCEDURES No Known [...]
--- OUTSIDE RECORDS SUMMARY | 2018-09-16 10:44 | XMS REPORT ---
Author Author RIVAS MICHAELS Organization [facility] Address [address] [place] [address] Care Team Providers Care Remelt Sugar Boiler Name Role Phone RIVAS MICHAELS Unavailable PROBLEMS Type Condition ICD9-CM Code FOD06-SK Code Onset Dates Condition Status SNOMED Code Problem Non morbid obesity E66.9 Active 617624959 Problem Chronic hepatitis C without hepatic coma B18.2 Active 842160141 Problem HPV (human papilloma virus) infection A63.0 Active 477714988 Problem Other chronic pain G89.29 Active 29564475 Problem Menorrhagia with irregular cycle N92.1 Active 037218472 ALLERGIES Substance Reaction Event Type Date Status Morphine Sulfate shortness of breath Drug Allergy Nov, Active Ibuprofen vomiting Drug Allergy Nov, Active ENCOUNTERS Encounter Location Date Diagnosis [place] [address] [place] [address] 85457- 2759 Jan, [place] [id number] [place] [address] 78052- 7247 Dec, Non morbid obesity E66.9 [facility] [id number] [place] [address] 50133- 7883 Nov, Rash R21 ; Other chronic pain G89.29 ; Pain in right hip M25.551 and Pain in right knee M25.561 [facility] [address] [address]- 4517 Oct, Right hip pain M25.551 [facility] [id number] [place] [address] 66838- 8362 Oct, [facility] [id number] [place] [address] 09171- 5230 Oct, Other chronic pain G89.29 and Pain in right hip M25.551 [facility] [address] [address]- 2029 Oct, [facility] [id number] [place] [address] 59331- 2316 Oct, Right hip pain M25.551 [facility] [address] [place] [address] 02304- 6646 Oct, Right hip pain M25.551 [facility] [id number] [place] [address] 96284- 5184 Dec, [place] [id number] [place] [address] 49014- 0325 Dec, [place] [id number] [place] [address] 78638- 4397 Dec, Menorrhagia with irregular cycle N92.1 [place] [id number] [place] [address] 96430- 4940 Aug, [place] [id number] [place] [address] 74668- 8555 Aug, Atypical squamous cells of undetermined significance on cytologic smear of cervix (ASC-US) R87.610 and HPV (human papilloma virus) infection A63.0 [place] [address] [address]- 3049 Jul, [place] [address] [place] [address] 50384- 4838 Jul, Routine gynecological examination Z01.419 and Trichomonal vaginitis A59.01 [place] [id number] [place] [address] 88041- 8078 Apr, General medical exam Z00.00 [place] [address] [address]- 0618 Mar, [place] [id number] [place] [address] 31687- 0798 Aug, [facility] [place] [facility] [address] [id number] [place] [address]- 7266 Aug, [facility] [place] [facility] [address] [id number] [place] [address]- 8794 Jul, [facility] [place] [facility] [address] [id number] [place] [address]- 2289 Jul, [facility] [place] [facility] [address] [id number] [place] [address]- 0675 Jul, [facility] [place] [facility] [address] [id number] [place] [address]- 9325 Jul, [facility] [place] [facility] [address] [id number] [place] [address]- 8568 Jul, [facility] [place] [facility] [address] [id number] [place] [address]- 6067 May, [facility] [place] [facility] [address] [id number] [place] [address]- 8185 May, [facility] [place] [facility] [address] [id number] [place] [address]- 2503 May, [facility] [place] [facility] [address] [id number] [place] [address]- 5819 May, [facility] [place] [facility] [address] [id number] [place] [address]- 8858 May, [facility] [place] [facility] [address] [id number] [place] [address]- 9583 May, [facility] [place] [facility] [address] [id number] [place] [address]- 6750 May, [facility] [place] [facility] [address] [facility] [id number] [place] [address]- 7441 May, [facility] [place] [facility] [address] [facility] [id number] [place] [address]- 2872 May, [facility] [place] [facility] [address] [facility] [id number] [place] [address]- 2546 May, [facility] [address] [facility] [id number], [place] [address]- 4173 Apr, [facility] [id number], [place] [address]- 4186 Apr, [facility] [address] [facility] [id number], [place] [address]- 3533 Apr, [facility] [address] [facility] [id number], [place] [address]- 1557 Apr, [facility] [address] [facility] [id number], [place] [address]- 4403 Nov, IMMUNIZATIONS Vaccine Route Administration Date Status SOLUMEDROL (UP TO 125 MG) IM Intramuscular December 03, 2017 Administered SOCIAL HISTORY Never Assessed REASON FOR VISIT Transition of Care WB-MA, Right hip pain , Heat rash on both legs, forearms and lower back PLAN OF CARE VITAL SIGNS Height 66 in 2017-12-03 Weight 240 lbs 2017-12-03 Temperature 98.3 degrees Fahrenheit 2017-12-03 Heart Rate 60 bpm 2017-12-03 Respiratory Rate 20 2017-12-03 BMI 38.73 kg/m2 2017-12-03 Blood pressure systolic 130 mmHg 2017-12-03 Blood pressure diastolic 84 mmHg 2017-12-03 MEDICATIONS Medication Instructions Dosage Frequency Start Date End Date Duration Status Cetirizine HCl 10 mg Orally Once a day 1 tablet 24h Nov, Apr, 30 day(s) Active Meloxicam 7.5 MG Orally 2 times a day 1 tablet 12h Nov, Active tylenol Active Cyclobenzaprine HCl 10 mg Orally Three times a day 1 tablet as needed 8h Nov, Active RESULTS No Results PROCEDURES Procedure Date Ordered Result Body Site SOLUMEDROL (UP TO 125 MG) December 03, 2017 THER/PROPH/DIAG INJ, SC/IM December 03, 2017 INSTRUCTIONS MEDICATIONS ADMINISTERED No Known Medications MEDICAL (GENERAL) HISTORY Type Description Date Medical History IV Meth and Heroine Abuse 2013 Medical History Hepatitis C Surgical History tonsillectomy and adenoidectomy 1990 Surgical History cholecystectomy 2004 Surgical History ganglion cyst 2000 Surgical History partial hysterectomy 2017 Hospitalization History of children Hospitalization History surgeries listed above
--- OUTSIDE RECORDS SUMMARY | 2018-09-16 10:44 | XMS REPORT ---
Author Author RIVAS MICHAELS Organization [facility] Address [address] [place] [address] Care Team Providers Care Security Sme Name Role Phone RIVAS MICHAELS Unavailable PROBLEMS Type Condition ICD9-CM Code OYY06-CR Code Onset Dates Condition Status SNOMED Code Problem Non morbid obesity E66.9 Active 146014195 Problem Chronic hepatitis C without hepatic coma B18.2 Active 024913135 Problem HPV (human papilloma virus) infection A63.0 Active 978196009 Problem Other chronic pain G89.29 Active 10342438 Problem Menorrhagia with irregular cycle N92.1 Active 735440050 ALLERGIES Substance Reaction Event Type Date Status Morphine Sulfate shortness of breath Drug Allergy Dec, Active Ibuprofen vomiting Drug Allergy Dec, Active ENCOUNTERS Encounter Location Date Diagnosis [place] [id number] [place] [address] 81826- 3939 Jan, [place] [id number] [place] [address] 77548- 6564 Dec, Non morbid obesity E66.9 [facility] [id number] [place] [address] 07723- 2534 Nov, Rash R21 ; Other chronic pain G89.29 ; Pain in right hip M25.551 and Pain in right knee M25.561 [facility] [address], [place] [address]- 8750 Oct, Right hip pain M25.551 [facility] [id number] [place] [address] 52432- 9397 Oct, [facility] [id number] [place] [address] 77946- 7703 Oct, Other chronic pain G89.29 and Pain in right hip M25.551 [facility] [address], [place] [address]- 9281 Oct, [facility] [id number] [place] [address] 60311- 8956 Oct, Right hip pain M25.551 [facility] [address] [place] [address] 37560- 7496 Oct, Right hip pain M25.551 [facility] [id number] [place] [address] 49111- 5460 Dec, [place] [id number] [place] [address] 41974- 0436 Dec, [place] [id number] [place] [address] 82696- 1045 Dec, Menorrhagia with irregular cycle N92.1 [place] [id number] [place] [address] 37326- 9946 Aug, [place] [id number] [place] [address] 95413- 0258 Aug, Atypical squamous cells of undetermined significance on cytologic smear of cervix (ASC-US) R87.610 and HPV (human papilloma virus) infection A63.0 [place] [address], [place] [address]- 9280 Jul, [place] [address] [place] [address] 24846- 6122 Jul, Routine gynecological examination Z01.419 and Trichomonal vaginitis A59.01 [place] [id number] [place] [address] 41393- 1319 Apr, General medical exam Z00.00 [place] [address], [place] [address]- 8683 Mar, [place] [id number] [place] [address] 23807- 1089 Aug, [facility] [place] [facility] [address] [id number] [place] [address]- 1100 Aug, [facility] [place] [facility] [address] [id number] [place] [address]- 6409 Jul, [facility] [place] [facility] [address] [id number] [place] [address]- 5993 Jul, [facility] [place] [facility] [address] [id number] [place] [address]- 9531 Jul, [facility] [place] [facility] [address] [id number] [place] [address]- 5709 Jul, [facility] [place] [facility] [address] [id number] [place] [address]- 0000 Jul, [facility] [place] [facility] [address] [id number] [place] [address]- 9515 May, [facility] [place] [facility] [address] [id number] [place] [address]- 0092 May, [facility] [place] [facility] [address] [id number] [place] [address]- 5910 May, [facility] [place] [facility] [address] [id number] [place] [address]- 2046 May, [facility] [place] [facility] [address] [id number] [place] [address]- 8657 May, [facility] [place] [facility] [address] [id number] [place] [address]- 5521 May, [facility] [place] [facility] [address] [id number] [place] [address]- 4139 May, [facility] [place] [facility] [address] [facility] [id number] [place] [address] May, [facility] [place] [facility] [address] [facility] [id number] [place] [address] May, [facility] [place] [facility] [address] [facility] [id number], [place] [address] May, [facility] [address] [facility] [id number], [place] [address] Apr, [facility] [address] [id number] [id number] Apr, [facility] [address] [facility] [id number][place] [address] Apr, [facility] [address] [facility] [id number][place] [id number] Apr, [facility] [address] [facility] [id number][place] [address] Nov, IMMUNIZATIONS No Known Immunizations SOCIAL HISTORY Never Assessed REASON FOR VISIT Weight management, reports started working out regularly. Following a better diet. Was trying slimfast shakes, currently watching calorie intake. CBrumbackRN PLAN OF CARE Activity Details Follow Up 4 Weeks Reason:weight control VITAL SIGNS Height 66 in 2018-01-24 Weight 247.9 lbs 2018-01-24 Temperature 98.0 degrees Fahrenheit 2018-01-24 Heart Rate 72 bpm 2018-01-24 Respiratory Rate 20 2018-01-24 BMI 40.01 kg/m2 2018-01-24 Blood pressure systolic 138 mmHg 2018-01-24 Blood pressure diastolic 84 mmHg 2018-01-24 MEDICATIONS Medication Instructions Dosage Frequency Start Date End Date Duration Status Cyclobenzaprine HCl 10 mg Orally Three times a day 1 tablet as needed 8h Nov, Active Cetirizine HCl 10 mg Orally Once a day 1 tablet 24h Nov, Apr, 30 day(s) Not-Taking Phentermine HCl 15 MG Orally Once a day 1 capsule 24h Dec, Active Meloxicam 7.5 MG Orally 2 times a day 1 tablet 12h Nov, Active tylenol Active RESULTS No Results PROCEDURES Procedure Date Ordered Result Body Site VENIPUNCT, ROUTINE* Jan 24, 2018 COMPREHEN METABOLIC PANEL Jan 24, 2018 COMPLETE CBC W/AUTO DIFF WBC Jan 24, 2018 ASSAY THYROID STIM HORMONE Jan 24, 2018 INSTRUCTIONS MEDICATIONS ADMINISTERED No Known Medications MEDICAL (GENERAL) HISTORY Type Description Date Medical History IV Meth and Heroine Abuse 2013 Medical History Hepatitis C Surgical History tonsillectomy and adenoidectomy 1990 Surgical History cholecystectomy 2004 Surgical History ganglion cyst 2000 Surgical History partial hysterectomy 2017 Hospitalization History of children Hospitalization History surgeries listed above
--- OUTSIDE RECORDS SUMMARY | 2018-09-16 10:45 | XMS REPORT ---
Author Author RIVAS MICHAELS Organization [facility] [place] Address [address] [place] [address] Care Team Providers Care Pharmacy Helper Name Role Phone RIVAS MICHAELS Unavailable PROBLEMS Type Condition ICD9-CM Code DIK04-JA Code Onset Dates Condition Status SNOMED Code Problem Non morbid obesity E66.9 Active 238483120 Problem Chronic hepatitis C without hepatic coma B18.2 Active 910367045 Problem HPV (human papilloma virus) infection A63.0 Active 506875184 Problem Other chronic pain G89.29 Active 43121717 Problem Menorrhagia with irregular cycle N92.1 Active 266156459 ALLERGIES Substance Reaction Event Type Date Status Morphine Sulfate shortness of breath Drug Allergy Oct, Active Ibuprofen vomiting Drug Allergy Oct, Active ENCOUNTERS Encounter Location Date Diagnosis [place] [id number] [place] [address] 50217- 6568 Jan, [place] [address] [place] [address] [id number] [place] [address] 98577- 4864 Dec, Non morbid obesity E66.9 [facility] [place] [id number] [place] [address] 89166- 3882 Nov, Rash R21 ; Other chronic pain G89.29 ; Pain in right hip M25.551 and Pain in right knee M25.561 [facility] [place] [address] [address] 5760 Oct, Right hip pain M25.551 [facility] [place] [id number] [place] [address] 07021- 9819 Oct, [facility] [place] [id number] [place] [address] 20695- 7831 Oct, Other chronic pain G89.29 and Pain in right hip M25.551 [facility] [place] [address] [address] 2359 Oct, [facility] [place] [id number] [place] [address] 92618- 6486 Oct, Right hip pain M25.551 [facility] [place] [address] [place] [address] 89759- 7116 Oct, Right hip pain M25.551 [facility] [place] [id number] [place] [address] 85726- 9373 Dec, [place] [id number] [place] [address] 18356- 1221 Dec, [place] [address] [id number] [place] [address] 23677- 0097 Dec, Menorrhagia with irregular cycle N92.1 [place] [id number] [place] [address] 08873- 0299 Aug, [place] [address] [id number] [place] [address] 75002- 8615 Aug, Atypical squamous cells of undetermined significance on cytologic smear of cervix (ASC-US) R87.610 and HPV (human papilloma virus) infection A63.0 [place] [address] [address] 4467 Jul, [place] [address] [place] [address] 03858- 6789 Jul, Routine gynecological examination Z01.419 and Trichomonal vaginitis A59.01 [place] [address] [id number] [place] [address] 44663- 1845 Apr, General medical exam Z00.00 [place] [address] [address]- 3292 Mar, [place] [address] [id number] [place] [address] 33683- 5658 Aug, [facility] [place] [facility] [address] [id number] [place] [address]- 1324 Aug, [facility] [place] [facility] [address] [id number] [place] [address]- 7128 Jul, [facility] [place] [facility] [address] [id number] [place] [address]- 5195 Jul, [facility] [place] [facility] [address] [id number] [place] [address]- 9486 Jul, [facility] [place] [facility] [address] [id number] [place] [address]- 8805 Jul, [facility] [place] [facility] [address] [id number] [place] [address]- 2175 Jul, [facility] [place] [facility] [address] [id number] [place] [address]- 0898 May, [facility] [place] [facility] [address] [id number] [place] [address]- 5230 May, [facility] [place] [facility] [address] [id number] [place] [address]- 6490 May, [facility] [place] [facility] [address] [id number] [place] [address]- 7703 May, [facility] [place] [facility] [address] [id number] [place] [address]- 7200 May, [facility] [place] [facility] [address] [id number] [place] [address]- 2776 May, [facility] [place] [facility] [address] [id number] [place] [address]- 4636 May, [facility] [place] [facility] [address] [facility] [id number] [place] [address]- 9739 May, [facility] [place] [facility] [address] [facility] [id number] [place] [address]- 1124 May, [facility] [place] [facility] [address] [facility] [id number] [place] [address]- 2546 May, [facility] [place] [address] [facility] [id number] [address]- 4456 Apr, [facility] [place] [address] [facility] [id number] [address]- 2546 Apr, [facility] [place] [address] [facility] [id number] [place] [address] 2546 Apr, [facility] [place] [address] [facility] [id number] [address]- 2546 Apr, [facility] [place] [address] [facility] [id number] [address]- 5716 Nov, IMMUNIZATIONS No Known Immunizations SOCIAL HISTORY Never Assessed REASON FOR VISIT Pain (acute) hip, PT reports she has been having problems with her right hip. PT notes they have taken xrays and she starts physical therapy at the end of this month. PT reports she has been having on going issues with her right knee since high school when she injured it lifiting she is unsure if the knee is related to the hip pain. PT states the Tizanidine she was prescribed has been knocking her out. -Celestine FAY PLAN OF CARE Activity Details Future/Pending Procedure JOINT INJECTION-LARGE JOINT VITAL SIGNS Height 66 in 2017-11-19 Weight 239.7 lbs 2017-11-19 Temperature 97.4 degrees Fahrenheit 2017-11-19 Heart Rate 71 bpm 2017-11-19 Respiratory Rate 20 2017-11-19 Oximetry on room air:97 % 2017-11-19 BMI 38.68 kg/m2 2017-11-19 Blood pressure systolic 122 mmHg 2017-11-19 Blood pressure diastolic 72 mmHg 2017-11-19 MEDICATIONS Medication Instructions Dosage Frequency Start Date End Date Duration Status tylenol Active Tizanidine HCl 6 MG Orally Three times a day 1 capsule as needed 8h OctNov, 30 days Active PredniSONE 10 mg Orally Once a day 4 tabs x 4 days, 3 tabs x 4 days, 2 tabs x 4 days then 1 tab x 4 days 24h Oct, Oct, 16 days Active Celebrex 200 mg Orally Once a day 1 capsule with food 24h Oct, Jan, 90 days Active RESULTS No Results PROCEDURES Procedure Date Ordered Result Body Site DRAIN/INJECT, JOINT/BURSA November 19, 2017 INSTRUCTIONS MEDICATIONS ADMINISTERED No Known Medications MEDICAL (GENERAL) HISTORY Type Description Date Medical History IV Meth and Heroine Abuse 2013 Medical History Hepatitis C Surgical History tonsillectomy and adenoidectomy 1990 Surgical History cholecystectomy 2004 Surgical History ganglion cyst 2000 Surgical History partial hysterectomy 2017 Hospitalization History of children Hospitalization History surgeries listed above
--- OUTSIDE RECORDS SUMMARY | 2018-09-16 10:45 | XMS REPORT ---
Author Author SIMSRADHA Mesa Organization [facility] Address [address] [place] [address] Care Team Providers Care Bead Maker Name Role Phone RADHA SIMS Unavailable PROBLEMS Type Condition ICD9-CM Code [id number] Code Onset Dates Condition Status SNOMED Code Problem Chronic hepatitis C without hepatic coma B18.2 Active 378648404 Problem Other chronic pain G89.29 Active 48739106 Problem Menorrhagia with irregular cycle N92.1 Active 053565753 Problem HPV (human papilloma virus) infection A63.0 Active 632280274 ALLERGIES No Information ENCOUNTERS Encounter Location Date Diagnosis [place] [id number] [place] [id number] [place] [address] 74750- 9633 Dec, [place] [address] [address]26- 8811 Nov, Rash R21 ; Other chronic pain G89.29 ; Pain in right hip M25.551 and Pain in right knee M25.561 [place] [address] [place] [id number] [place] [address] 59935- 3183 Oct, Right hip pain M25.551 [place] [address] [place] [address] [id number] [place] [address] 38105- 1456 Oct, [place] [address] [place] [address] [id number] [place] [address] 96113- 8655 Oct, Other chronic pain G89.29 and Pain in right hip M25.551 [place] [address] [place] [address] [id number] [place] [address] 75593- 2967 Oct, [place] [address] [place] [address] [id number] [place] [address] 53280- 6202 Oct, Right hip pain M25.551 [facility] [id number] [place] [address] 01480- 9480 Oct, Right hip pain M25.551 [facility] [address] [place] [id number] [place] [address] 30225- 8378 Dec, [facility] [address] [id number] [place] [address] 07164- 5507 Dec, [facility] [address] [place] [id number] [place] [address] 26873- 0163 Dec, Menorrhagia with irregular cycle N92.1 [place] [address] [place] [address] [id number] [place] [address] 19951- 1939 Aug, [place] [address] [place] [address] [id number] [place] [address] 50574- 5443 Aug, Atypical squamous cells of undetermined significance on cytologic smear of cervix (ASC-US) R87.610 and HPV (human papilloma virus) infection A63.0 [place] [address] [place] [address] [id number] [place] [address] 22671- 4119 Jul, [place] [address] [place] [address] [id number] [place] [address] 71153- 3008 Jul, Routine gynecological examination Z01.419 and Trichomonal vaginitis A59.01 [place] [address] [place] [address] [id number] [place] [address] 48107- 1119 Apr, General medical exam Z00.00 [place] [address] [place] [address] [id number] [place] [address] 62382- 6213 Mar, [place] [address] [place] [address] [id number] [place] [address] 24954- 8457 Aug, [facility] [address] [place] [id number] [place] [address] 64303- 0885 Aug, [place] [address] [place] [address] [id number] [place] [address] 23281- 7570 Jul, [facility] [place] [facility] [address] [id number] [place] [address]- 7739 Jul, [facility] [place] [facility] [address] [id number] [place] [address]- 9170 Jul, [facility] [place] [facility] [address] [id number] [place] [address]- 1541 Jul, [facility] [place] [facility] [address] [id number] [place] [address]- 0359 Jul, [facility] [place] [facility] [address] [id number] [place] [address]- 6520 May, [facility] [place] [facility] [address] [id number] [place] [address]- 8738 May, [facility] [place] [facility] [address] [id number] [place] [address]- 1004 May, [facility] [place] [facility] [address] [id number] [place] [address]- 7115 May, [facility] [place] [facility] [address] [id number] [place] [address]- 3640 May, [facility] [place] [facility] [address] [id number] [place] [address]- 7843 May, [facility] [place] [facility] [address] [id number] [place] [address]- 0834 May, [facility] [place] [facility] [address] [id number] [place] [address]- 9833 May, [facility] [place] [facility] [address] [id number] [place] [address]- 4999 May, [facility] [place] [facility] [address] [id number] [place] [address]- 1532 May, [facility] [place] [facility] [address] [id number] [place] [address]- 8811 Apr, [facility] [place] [facility] [address] [id number] [place] [address]- 2546 Apr, [facility] [address] [facility] [id number] [place] [address]- 5803 Apr, [facility] [address] [facility] [id number] [place] [address]- 2856 Apr, [facility] [address] [facility] [id number] [place] [address]- 2525 Nov, IMMUNIZATIONS No Known Immunizations SOCIAL HISTORY Never Assessed REASON FOR VISIT Xray (walk-in) MHill RT(R) PLAN OF CARE VITAL SIGNS MEDICATIONS Unknown Medications RESULTS Name Result Date Reference Range Xray : Hip, Right 2 views (IN HOUSE) 2017-11-10 PROCEDURES Procedure Date Ordered Result Body Site X-RAY EXAM HIP UNI 2-3 VIEWS November 10, 2017 INSTRUCTIONS MEDICATIONS ADMINISTERED No Known Medications MEDICAL (GENERAL) HISTORY Type Description Date Medical History IV Meth and Heroine Abuse 2013 Medical History Hepatitis C Surgical History tonsillectomy and adenoidectomy 1990 Surgical History cholecystectomy 2004 Surgical History ganglion cyst 2000 Surgical History partial hysterectomy 2017 Hospitalization History of children Hospitalization History surgeries listed above
--- OUTSIDE RECORDS SUMMARY | 2018-09-16 10:45 | XMS REPORT ---
Author Author DRIK CLINTON [facility] Address [address] [place] [address] Care Team Providers Care Flat Sheet Maker Name Role Phone DIRK CLINTON Unavailable PROBLEMS Type Condition ICD9-CM Code ZLL33-QQ Code Onset Dates Condition Status SNOMED Code Problem Menorrhagia with irregular cycle N92.1 Active 279392038 Problem HPV (human papilloma virus) infection A63.0 Active 199586630 Problem Chronic hepatitis C without mention of hepatic coma 070.54 Active 434385516 Problem Other, mixed, or unspecified nondependent drug abuse, unspecified 305.90 Active 033883982 ALLERGIES Substance Reaction Event Type Date Status Morphine Sulfate shortness of breath Drug Allergy Apr, Active SOCIAL HISTORY No smoking Hx information available PLAN OF CARE Activity Details Follow Up [employer], next available Reason:[employer] VITAL SIGNS Height 66 in 2016-05-28 Weight 205.9 lbs 2016-05-28 Temperature 97.8 degrees Fahrenheit 2016-05-28 Heart Rate 77 bpm 2016-05-28 Respiratory Rate 18 2016-05-28 BMI 33.23 kg/m2 2016-05-28 Blood pressure systolic 137 mmHg 2016-05-28 Blood pressure diastolic 78 mmHg 2016-05-28 MEDICATIONS No Known Medications RESULTS No Results PROCEDURES Procedure Date Ordered Related Diagnosis Body Site Office Visit, Est Pt., Level 4 May 28, 2016 IMMUNIZATIONS No Known Immunizations
--- OUTSIDE RECORDS SUMMARY | 2018-09-16 10:45 | XMS REPORT ---
Author Author SIMSFREIDA MesaELE Organization [facility] Address [address] [place] [address] Care Team Providers Care Environmental Services Floor Tech Name Role Phone RADHA SIMS Unavailable PROBLEMS Type Condition ICD9-CM Code AHH83-VH Code Onset Dates Condition Status SNOMED Code Problem Non morbid obesity E66.9 Active 071719652 Problem Chronic hepatitis C without hepatic coma B18.2 Active 040170888 Problem HPV (human papilloma virus) infection A63.0 Active 071464287 Problem Other chronic pain G89.29 Active 88621164 Problem Menorrhagia with irregular cycle N92.1 Active 581727194 ALLERGIES No Information ENCOUNTERS Encounter Location Date Diagnosis [place] [address] [address] [id number] [place] [address] 33691- 3717 Jan, [place] [address] [place] [address] [id number] [place] [address] 26660- 2376 Dec, Non morbid obesity E66.9 [place] [address] [place] [address] [id number] [place] [address] 26809- 4038 Nov, Rash R21 ; Other chronic pain G89.29 ; Pain in right hip M25.551 and Pain in right knee M25.561 [place] [address] [place] [id number] [place] [address] 09768- 5934 Oct, Right hip pain M25.551 [place] [address] [place] [address] [id number] [place] [address] 27190- 6103 Oct, [place] [address] [place] [address] [id number] [place] [address] 60670- 9428 Oct, Other chronic pain G89.29 and Pain in right hip M25.551 [place] [address] [place] [address] [id number] [place] [address] 34161- 4558 Oct, [facility] [address] [place] [address] 67895- 3818 Oct, Right hip pain M25.551 [facility] [address] [place] [id number] [place] [address] 50688- 8796 Oct, Right hip pain M25.551 [facility] [address] [place] [id number] [place] [address] 92261- 5965 Dec, [place] [address] [place] [id number] [place] [address] 98452- 9633 Dec, [place] [address] [place] [id number] [place] [address] 44093- 6897 Dec, Menorrhagia with irregular cycle N92.1 [place] [address] [id number] [place] [address] 39703- 9504 Aug, [place] [address] [place] [address] [id number] [place] [address] 17557- 8969 Aug, Atypical squamous cells of undetermined significance on cytologic smear of cervix (ASC-US) R87.610 and HPV (human papilloma virus) infection A63.0 [place] [address] [place] [address] 63220- 9771 Jul, [place] [address] [place] [id number] [place] [address] 47876- 3446 Jul, Routine gynecological examination Z01.419 and Trichomonal vaginitis A59.01 [place] [address] [place] [address] [id number] [place] [address] 07212- 3259 Apr, General medical exam Z00.00 [place] [address] [id number] [place] [address] 30271- 5305 15 Mar, 2016 [place] [address] [place] [address] 97765- 0877 14 Aug, 2014 [place] [address] [place] [address] [id number] [place] [address] 75143- 2657 Aug, [facility] [place] [facility] [address] [id number] [place] [address]- 1179 Jul, [facility] [place] [facility] [address] [id number] [place] [address]- 5696 Jul, [facility] [place] [facility] [address] [id number] [place] [address]- 5426 Jul, [facility] [place] [facility] [address] [id number] [place] [address]- 3888 Jul, [facility] [place] [facility] [address] [id number] [place] [address]- 0690 Jul, [facility] [place] [facility] [address] [id number] [place] [address]- 4395 May, [facility] [place] [facility] [address] [id number] [place] [address]- 5557 May, [facility] [place] [facility] [address] [id number] [place] [address]- 0802 May, [facility] [place] [facility] [address] [id number] [place] [address]- 8700 May, [facility] [place] [facility] [address] [id number] [place] [address]- 2443 May, [facility] [place] [facility] [address] [id number] [place] [address]- 4157 May, [facility] [place] [facility] [address] [id number] [place] [address]- 5249 May, [facility] [place] [facility] [address] [id number] [place] [address]- 8446 May, [facility] [place] [facility] [address] [id number] [place] [address]- 4213 May, [facility] [place] [facility] [address] [id number] [place] 3621 May, [facility] [address] [facility] [id number] 9836 Apr, [facility] [address] [place] [address] [id number] [address]- 9255 Apr, [facility] [address] [facility] [id number], [place] [address]- 9649 Apr, [facility] [address] [id number] 7580 Apr, [facility] [address] [facility] [id number], [place] [address]- 9655 Nov, IMMUNIZATIONS No Known Immunizations SOCIAL HISTORY Never Assessed REASON FOR VISIT Med question PLAN OF CARE VITAL SIGNS MEDICATIONS Unknown Medications RESULTS No Results PROCEDURES No Known procedures INSTRUCTIONS MEDICATIONS ADMINISTERED No Known Medications MEDICAL (GENERAL) HISTORY Type Description Date Medical History IV Meth and Heroine Abuse 2013 Medical History Hepatitis C Surgical History tonsillectomy and adenoidectomy 1990 Surgical History cholecystectomy 2004 Surgical History ganglion cyst 2000 Surgical History partial hysterectomy 2016 Hospitalization History of children Hospitalization History surgeries listed above
--- OUTSIDE RECORDS SUMMARY | 2018-09-16 10:45 | XMS REPORT | Continuity of Care Document ---
Author Author [facility] Organization [facility] Address [address] [place] [address] Phone Unavailable Care Team Providers Care Transfer Driver Name Role Phone CRIS SMITH MD PCP Insurance Providers Guarantor Dru Yousif Address [address] [place] [phone] Email N [facility] Policy Number [id number] Subscriber's Name Dru Yousif Relationship 18 Self / Same As Patient Group Number [id number] Group Name [facility] Effective Date 16 Advance Directives Directive Response Recorded Date/Time Living Will No 02/09/17 8:30am Power of Hotel Maintenance Technician No 02/09/17 8:30am Advance Directives No 02/09/17 3:45pm Advance Directive on File No 02/09/17 4:15pm Durable POA for HC No 02/09/17 3:45pm Power of Hotel Maintenance Technician No 02/09/17 3:45pm Organ Donor No 02/09/17 3:45pm Living Will N - N 02/09/17 3:45pm Chief Complaint and Reason for Visit Chief Complaint LAVH, RIGHT OOPHORECTOMY, SPARING LEFT Reason for Visit Menorrhagia Problems Medical Problem Onset Date Status Menorrhagia Unknown Medications Current Home Medications Medication Dose Units Route Directions Days Qty Instructions Start Date Hydromorphone Hcl (Dilaudid 2MG) 2 Mg Tablet 4 Mg Oral Four Times A Day as needed for Pain 30 Days 02/10/17 Multivit-Min/Iron Fum/Folic Ac (Eyyxf-Txpggqg-Kyrfnysm Tablet) 7.5 Mg Iron-400 Mcg Tablet 1 Each Oral Once A Day for Supplement Social History Social History Problem Response Recorded Date/Time Onset Date Status Smoking Status Current every day smoker 02/09/2017 4:50pm Not Applicable Not Applicable Smoked in the last 12 months? Yes 02/09/2017 4:50pm Not Applicable Not Applicable Do you dip or chew tobacco? No 02/09/2017 4:50pm Not Applicable Not Applicable Approx how many cigs per day? 20 02/09/2017 4:50pm Not Applicable Not Applicable Level of Dependence High 02/09/2017 4:50pm Not Applicable Not Applicable Former smoker, last day smoked? today 02/09/2017 4:50pm Not Applicable Not Applicable Smoking Status Start Date Stop Date Current every day smoker Hospital Discharge Instructions No hospital discharge instruction information available. Plan of Care Discharge Date 02/10/17 9:59am Disposition 01 D/C HOME Instructions/Education Provided Hysterectomy (DC) Prescriptions See Medication Section Reference Links Reference Text What is a hysterectomy? A hysterectomy is surgery to remove the uterus (figure 1). The uterus is the part of a woman's body that carries a baby if she is . Another word for uterus is "womb." If you have a hysterectomy, you will never be able to carry a . Are there different kinds of surgery for hysterectomy? Yes, there are 4 main kinds of surgery: ?Abdominal hysterectomy To do an abdominal hysterectomy, the doctor makes a cut in the belly and removes the uterus through that opening (figure 2). ?Laparoscopic hysterectomy To do a laparoscopic hysterectomy, the doctor inserts a tiny camera and tools through small openings in the belly. Then he or she removes the uterus bit by bit through one of the holes or through the vagina. ?Robotic hysterectomy In a variation of the laparoscopic approach, the tools used for the surgery are attached to a robot that the doctor controls. This is called "robot-assisted laparoscopy." ?Vaginal hysterectomy To do a vaginal hysterectomy, the doctor makes cuts inside the vagina and removes the uterus through the vagina (figure 3). Vaginal hysterectomy leaves no visible scars, but it is not always possible. Sometimes doctors do vaginal hysterectomy but also use the tools used in laparoscopic hysterectomy. This is called a "laparoscopic-assisted vaginal hysterectomy." If this approach is used, the uterus is removed through the vagina. Why might a woman need a hysterectomy? A hysterectomy might be done to treat and of the following: ?Abnormal bleeding Some women bleed too much during their period or at times when they should not be bleeding. This can lead to a condition called anemia, which can make you feel very tired. ?Fibroids Fibroids are tough balls of muscle that form in the uterus. They can get very big and press on the organs inside the belly. They can also cause abnormal bleeding. ?Pelvic organ prolapse Pelvic organ prolapse is when the uterus falls down into the vagina (figure 4). ?Cancer or conditions that could lead to cancer Cancer can affect the uterus or the cervix, the organ that separates the uterus and the vagina. Sometimes doctors suggest removing these organs if they show signs that cancer is about to form. ?Ongoing pelvic pain Some women feel pain that will not go away in the area just below the belly. This is called "chronic pelvic pain." Hysterectomy can sometimes help cure this pain. What if I do not want a hysterectomy? Many of the conditions that are treated with hysterectomy can be treated in other ways instead. If you do not want the surgery, ask your doctor or nurse if you have other treatment options. Ask, too, what will happen if you do NOT have a hysterectomy. What if I want to get ? If you have a hysterectomy, you will not be able to get . Unfortunately, if you have cancer or another serious problem, you might not be able to avoid having a hysterectomy. If you want to have children, speak to your doctor or nurse about your options. Is the uterus the only organ that is removed during a hysterectomy? That depends on what you want and why you are having a hysterectomy. During a hysterectomy, doctors sometimes also remove the: ?Cervix For a vaginal hysterectomy, the cervix must be removed. For an abdominal or laparoscopic hysterectomy, the cervix can be removed or left in place. If the cervix is removed, it is called a total hysterectomy. If the cervix is left in place, it is called a subtotal or supracervical hysterectomy. ?Ovaries and fallopian tubes The ovaries are the organs that make eggs (which can become a baby) and female hormones, including estrogen and progesterone. The fallopian tubes carry eggs from the ovaries to the uterus. The hormones made by the ovaries help keep bones healthy and are important for other aspects of health. Women who have their ovaries removed sometimes need to take hormone pills. If you are planning to have a hysterectomy, ask your doctor whether he or she is planning to remove your cervix and your ovaries and fallopian tubes. It is important to know this, because women who do not have a cervix need different medical care than women who do. Likewise, women who do not have ovaries sometimes need different medical care than women who do. Should I have my ovaries and tubes removed if I have a hysterectomy? Deciding whether or not to have your ovaries removed can be tough. You will need to think about how old you are, and about how not having ovaries might affect you. In women who have not yet been through menopause, having the ovaries removed can lead to hot flashes, bone loss, reduced interest in sex, and other problems. In women who have been through menopause, having the ovaries removed might also increase the risk of health problems, such as heart disease, but the research is still not clear. On the other hand, women who have health problems that get worse at certain times in the menstrual cycle sometimes feel better without their ovaries. Plus, in rare cases, the ovaries can develop cancer, so women sometimes choose to have them removed. Before you have surgery, ask your doctor about the pros and cons of having your ovaries removed. The fallopian tubes are not needed if a woman is not going to get . They can be removed at the time of hysterectomy, even if the ovaries are left behind. This can lower the risk of a rare type of cancer that can start in the fallopian tubes. What will my life be like? Studies show that women can have happy, full lives after a hysterectomy. Many women feel better after the surgery, because they no longer have the symptoms that bothered them before. Functional Status Query Response Date Recorded Activities of Daily Living Performs w/o Assistance February 10, 2017 9:12am Cognitive Function Intact February 10, 2017 9:12am Allergies, Adverse Reactions, Alerts Allergen Type Severity Reaction Status Last Updated Morphine Allergy Unknown Active 02/09/17 Immunizations No immunization information available. Vital Signs Acute Vital Signs Vital Response Date/Time Temperature (Fahrenheit) 99.0 degrees F (97.6 - 99.5) 02/10/2017 8:00am Temperature (Calculated Celsius) 37.13044 degrees C (36.4 - 37.5) 02/10/2017 8:00am Temperature Source Temporal Artery Scan 02/10/2017 8:00am Pulse Pulse Rate (adult) 79 beats per minute (60 - 90) 02/10/2017 8:00am Oxygen Saturation Respiratory Rate 20 breaths per minute (12 - 24) 02/10/2017 8:00am O2 Sat by Pulse Oximetry 94 % (90 - 100) 02/10/2017 8:00am Blood Pressure 131/75 mm Hg 02/10/2017 8:00am Blood Pressure Mean 93 mm Hg 02/10/2017 8:00am Height 5 ft 5 in 02/09/2017 4:16pm Weight 217 lb 02/09/2017 4:16pm Body Mass Index 36.1 kg/m^2 02/09/2017 4:16pm Results Laboratory Results Test Name Result Units Flags Reference Collection Date/Time Result Date/ Time Comments White Blood Count 9.8 x10^3/uL 4.0-11.0 02/10/2017 6:00am 02/10/2017 6: 59am Red Blood Count 4.42 10^6/uL 3.80-5.80 02/10/2017 6:00am 02/10/2017 6: 59am Hematocrit 36.3 % L 37.0-47.0 02/10/2017 6:00am 02/10/2017 6:59am Mean Corpuscular Volume 82 fl 76-96 02/10/2017 6:00am 02/10/2017 6: 59am Mean Corpuscular Hemoglobin 27.4 pg 27.0-32.0 02/10/2017 6:00am 2016 6:59am Mean Corpuscular Hemoglobin Concent 33.3 g/dl 31.0-35.0 02/10/2017 6: 00am 02/10/2017 6:59am Red Cell Distribution Width 14.3 % 11.0-16.0 02/10/2017 6:00am 2016 6:59am Platelet Count 181 10^3/uL 150-500 02/10/2017 6:00am 02/10/2017 6:59am Mean Platelet Volume 11.8 fl H 6.0-10.0 02/10/2017 6:00am 02/10/2017 6: 59am Neutrophils (%) (Auto) 80.6 % *H 45.0-70.0 02/10/2017 6:00am 02/10/2017 6 :59am Lymphocytes (%) (Auto) 11.3 % *L 20.0-40.0 02/10/2017 6:00am 02/10/2017 6 :59am Monocytes (%) (Auto) 7.3 % 3.0-10.0 02/10/2017 6:00am 02/10/2017 6: 59am Eosinophils (%) (Auto) 0.6 % L 1.0-5.0 02/10/2017 6:00am 02/10/2017 6: 59am Basophils (%) (Auto) 0.2 % 0.0-0.5 02/10/2017 6:00am 02/10/2017 6:59am Neutrophils # (Auto) 7.87 x10^3/uL H 2.00-7.50 02/10/2017 6:00am 2016 6:59am Lymphocytes # (Auto) 1.10 x10^3/uL L 1.50-4.00 02/10/2017 6:00am 2016 6:59am Monocytes # (Auto) 0.71 x10^3/uL 0.20-0.80 02/10/2017 6:00am 2016 6:59am Eosinophils # (Auto) 0.06 x10^3/uL 0.04-0.40 02/10/2017 6:00am 2016 6:59am Basophils # (Auto) 0.02 x10^3/uL 0.02-0.10 02/10/2017 6:00am 2016 6:59am Neutrophils % (Manual) 81 % H 39-79 02/10/2017 6:00am 02/10/2017 7:00am Band Neutrophils % 0 % 0-10 02/10/2017 6:00am 02/10/2017 7:00am Lymphocytes % (Manual) 15 % L 20-60 02/10/2017 6:00am 02/10/2017 7:00am Monocytes % (Manual) 4 % 0-9 02/10/2017 6:00am 02/10/2017 7:00am Eosinophils % (Manual) 0 % 0-7 02/10/2017 6:00am 02/10/2017 7:00am Basophils % (Manual) 0 % 0-8 02/10/2017 6:00am 02/10/2017 7:00am Platelet Morphology Comment ADEQUATE 02/10/2017 6:00am 02/10/2017 7 :00am Red Blood Cell Morphology NORMAL 02/10/2017 6:00am 02/10/2017 7: 00am Sodium Level 139 mmol/L 137-145 02/10/2017 6:0002/10/2017 6:58am Potassium Level 3.7 mmol/L 3.5-5.1 02/10/2017 6:00am 02/10/2017 6:58am Carbon Dioxide Level 26.4 mmol/L 22-02/10/2017 6:00am 02/10/2017 6: 58am Anion Gap 13.3 mEq/L 8-16 02/10/2017 6:00am 02/10/2017 6:58am Blood Urea Nitrogen 7 mg/dL # 7-17 02/10/2017 6:00am 02/10/2017 6:58am Creatinine 0.54 mg/dl 0.52-1.04 02/10/2017 6:00am 02/10/2017 6:58am Est Glomerular Filtrat Rate mL/min > 90.00 02/10/2017 6:00am 2016 6:58am GFR NORMALS: Stage I: GFR >90 Stage II GFR 60-89 Stage III GFR 30-60 Stage IV: GFR 15-29 Stage V: GFR <15 BUN/Creatinine Ratio 12.96 02/10/2017 6:00am 02/10/2017 6:58am Glucose Level 110 mg/dL H 74-106 02/10/2017 6:00am 02/10/2017 6:58am Calculated Osmolality 290.9 mosm/kg 273-304 02/09/2017 7:55am 2016 9:34am Calcium Level 8.3 mg/dL L 8.4-10.2 02/10/2017 6:00am 02/10/2017 6:58am Total Bilirubin 0.4 mg/dL 0.2-1.3 02/09/2017 7:5502/09/2017 9:34am Aspartate Amino Transf (AST/SGOT) 32 U/L 14-36 02/09/2017 7:55am 2016 9:34am Alanine Aminotransferase (ALT/SGPT) 59 U/L H 9-52 02/09/2017 7:55am 04/2017 9:34am Alkaline Phosphatase 143 U/L H 38-126 02/09/2017 7:55am 02/09/2017 9: 34am Total Protein 6.8 g/dL 6.4-8.4 02/09/2017 7:55am 02/09/2017 9:34am Albumin 3.8 g/dL 3.4-5.5 02/09/2017 7:55am 02/09/2017 9:34am Globulin 3.0 2.3-3.5 02/09/2017 7:55am 02/09/2017 9:34am Albumin/Globulin Ratio 1.266 02/09/2017 7:55am 02/09/2017 9:34am Procedures Procedure Status Date Provider(s) Laparoscopic assisted vaginal hysterectomy Completed 02/09/17 CRIS SMITH MD Cystoscopy Completed 02/09/17 CRIS SMITH MD Encounters Encounter Location Arrival/Admit Date Discharge/Depart Date Attending Provider Discharged Inpatient (obs) [facility] 02/09/17 3:26pm 02/10/17 9: 59am JAMMIE VELIZ MD Recent Diagnosis Menorrhagia
--- OUTSIDE RECORDS SUMMARY | 2018-09-16 10:45 | XMS REPORT ---
Author Author SIMSRADHA Mesa Organization [facility] Address [address] [place] [address] Care Team Providers Care Chin Strap Sewer Name Role Phone RADHA SIMS Unavailable PROBLEMS Type Condition ICD9-CM Code JSB43-SC Code Onset Dates Condition Status SNOMED Code Problem Chronic hepatitis C without hepatic coma B18.2 Active 831343822 Problem Other chronic pain G89.29 Active 95081883 Problem Menorrhagia with irregular cycle N92.1 Active 797656558 Problem HPV (human papilloma virus) infection A63.0 Active 072532820 ALLERGIES Substance Reaction Event Type Date Status Morphine Sulfate shortness of breath Drug Allergy Oct, Active Ibuprofen vomiting Drug Allergy Oct, Active ENCOUNTERS Encounter Location Date Diagnosis [place] [id number] [place] [address] Dec, [place] [address] [address] Nov, Rash R21 ; Other chronic pain G89.29 ; Pain in right hip M25.551 and Pain in right knee M25.561 [place] [id number] [place] [address] Oct, Right hip pain M25.551 [facility] [id number] [place] [address] Oct, [facility] [address] [address] Oct, Other chronic pain G89.29 and Pain in right hip M25.551 [facility] [id number] [place] [address] Oct, [facility] [address] [place] [address] 13 Oct, 2017 Right hip pain M25.551 [facility] [id number] [place] [address] Oct, Right hip pain M25.551 [facility] [id number] [place] [address] Dec, [facility] [id number] [place] [address] Dec, [facility] [id number] [place] [address]- [address] Dec, Menorrhagia with irregular cycle N92.1 [place] [id number] [place] [address]- [address] Aug, [place] [id number] [place] [address] Aug, Atypical squamous cells of undetermined significance on cytologic smear of cervix (ASC-US) R87.610 and HPV (human papilloma virus) infection A63.0 [place] [id number] [place] [address] Jul, [facility] [id number] [place] [address]- [address] Jul, Routine gynecological examination Z01.419 and Trichomonal vaginitis A59.01 [place] [id number] [place] [address]- 117[address] Apr, General medical exam Z00.00 [facility] [id number] [place] [address]- [address] Mar, [facility] [id number] [place] [address]- [address] 14 Aug, 2014 [facility] [id number] [place] [address]- [address] Aug, [facility] [address] [address] [place] [address] Jul, [facility] [place] [facility] [address] [id number] [place] [address] Jul, [facility] [place] [facility] [address] [id number] [place] [address] Jul, [facility] [place] [facility] [address] [id number] [place] [address] Jul, [facility] [place] [facility] [address] [id number] [place] [address]- [address] Jul, [facility] [place] [facility] [address] [id number] [place] [address] May, [facility] [place] [facility] [address] [id number] [place] [address] May, [facility] [place] [facility] [address] [id number] [place] [address] May, [facility] [place] [facility] [address] [id number] [place] [address] May, [facility] [place] [facility] [address] [id number] [place] [address] May, [facility] [place] [facility] [address] [facility] [id number] [place] [address] May, [facility] [place] [facility] [address] [id number] [place] [address] May, [facility] [place] [facility] [address] [id number] [place] [address] May, [facility] [place] [facility] [address] [id number] [place] [address] May, [facility] [place] [facility] [address] [id number] [place] [address] May, [facility] [place] [facility] [address] [id number] [place] [address] Apr, [facility] [address] [facility] [id number], [place] [address] Apr, [facility] [address] [facility] [id number], [place] [address] Apr, [facility] [address] [facility] [id number], [place] [address] Apr, [facility] [address] [facility] [id number], [place] [address] Nov, IMMUNIZATIONS No Known Immunizations SOCIAL HISTORY Never Assessed REASON FOR VISIT Pain (acute)right hip-awoods PLAN OF CARE Activity Details Follow Up 6 Weeks Reason:f/u hip pain VITAL SIGNS Height 66 in 2017-11-09 Weight 238.5 lbs 2017-11-09 Temperature 97.4 degrees Fahrenheit 2017-11-09 Heart Rate 98 bpm 2017-11-09 Respiratory Rate 20 2017-11-09 BMI 38.49 kg/m2 2017-11-09 Blood pressure systolic 120 mmHg 2017-11-09 Blood pressure diastolic 76 mmHg 2017-11-09 MEDICATIONS Medication Instructions Dosage Frequency Start Date End Date Duration Status tylenol Active PredniSONE 10 mg Orally Once a day 4 tabs x 4 days, 3 tabs x 4 days, 2 tabs x 4 days then 1 tab x 4 days 24h Oct, Oct, 16 days Active Celebrex 200 mg Orally Once a day 1 capsule with food 24h Oct, Jan, 90 days Active Tizanidine HCl 6 MG Orally Three times a day 1 capsule as needed 8h OctNov, 30 days Active RESULTS No Results PROCEDURES [...]
[2018-09-16 10:46] LABS: INR 1.2 (0.8-1.4); PROTHROMBIN TIME PATIENT 15.5 SEC (12.2-14.7)
--- OUTSIDE RECORDS SUMMARY | 2018-09-16 10:46 | XMS REPORT | Continuity of Care Document ---
Author Author [facility] Organization [facility] Address Unknown Phone Unavailable Care Team Providers Care Course Developer Name Role Phone NO, LOCAL PHYSICIAN PP Unavailable Insurance Providers Payer Name Policy Number Subscriber Name Relationship Self Pay Dru Huynh 01 Self / Same As Patient Advance Directives Directive Response Recorded Date Advance Directives N 03/02/13 1:42pm Health Care Power of Engagement Manager N 03/02/13 1:42pm Organ Donor N 03/02/13 1:42pm Problems No Known Problems or Medical conditions. 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 03/02/13 1:42pm Recent Foreign Travel N 03/02/13 1:42pm Recent Infectious Disease Exposure N 08/10 1:42pm Sexually Transmitted Disease Y HPV 1:42pm Allergies, Adverse Reactions, Alerts Allergen Type Severity Reaction Last Updated morphine Allergy Severe SOA, HIVES 01/29/12 Medications Medication Dose Units Route Sig Qty Days Tramadol Hcl 50 Mg PO Q6H 6 Ibuprofen (Motrin) 1 Each PO TID PRN 20 Trimethoprim/Sulfamethoxazole (Bactrim Ds) 1 Ea PO BID 10 Hydrocodone Bit/Acetaminophen (Hydrocodon-Acetaminophen 5-325) 1 - 2 Each PO Q6H PRN 24 Desvenlafaxine Succinate (Pristiq) 50 Mg PO [Vistaril] [ortho 1/50] DAILY 28 [ortho 1/50] Naproxen (Naprosyn) 1 Each PO BID - TID PRN 60 Medroxyprogesterone Acetate (Medroxyprogesterone Acetatae) 1 Each PO DAILY 7 Response Recorded Date/Time Status not known Unknown Results Test Date Result Interp. Ref. Range Acetaminophen Level April 23, 2012 12:30am 17 UG/ML N 10.0-30.0 Acetaminophen Screen December 24, 2010 1:03pm NEG - Activated Partial Thromboplast Time February 14, 2011 10: 31pm 38 SEC H 24-35 Alanine Aminotransferase (ALT/SGPT) July 02, 2009 8: 35pm 33 U/L N 30-65 Albumin July 02, 2009 8:35pm 3.6 G/ DL N 3.4-5.0 Alkaline Phosphatase July 02, 2009 8:35pm 94 U/L N 50-136 Amphetamines Screen May 19, 2006 10:55am Negative - Amylase Level July 02, 2009 8:35pm 51 U/L N 25-115 Anisocytosis November 04, 2006 8:33am Slight - Aspartate Amino Transf (AST/SGOT) July 02, 2009 8:35pm 17 U/L N 15-37 BUN/Creatinine Ratio April 23, 2012 12:30am 11 - Band Neutrophils November 04, 2006 8:33am 0 % - Basophils # (Auto) February 25, 2013 2:15pm 0.1 10^3/uL N 0.0-0.1 Basophils % (Manual) November 04, 2006 8:33am 0 % - Basophils (%) (Auto) February 25, 2013 2:15pm 2 % N 0-10 Blood Urea Nitrogen April 23, 2012 12:30am 9 MG/DL N 7-18 C-Reactive Protein February 25, 2013 2:15pm 6.9 MG/DL H 0.2-0.9 Calcium Level April 23, 2012 12:30am 7.9 MG/DL L 8.5-10.1 Carbon Dioxide Level April 23, 2012 12:30am 28 MMOL/L N 21-32 Chlamydia DNA Probe July 09, 2011 8:45pm NEG - Chlamydia/GC DNA Probe Source July 09, 2011 8:45pm CERVIX - Chloride Level April 23, 2012 12:30am 99 MMOL/L L 101-110 Cocaine Screen May 19, 2006 10:55am Negative - Creatinine April 23, 2012 12:30am 0.8 MG/DL N 0.6-1.3 Eosinophils # (Auto) February 25, 2013 2:15pm 0.1 10^3/uL N 0.0-0.3 Eosinophils % (Manual) November 04, 2006 8:33am 0 % - Eosinophils (%) (Auto) February 25, 2013 2:15pm 2 % N 0-10 Glucose Level April 23, 2012 12:30am 115 MG/DL H 74-106 Hematocrit February 25, 2013 2:15pm 40 % N 35-52 Hemoglobin February 25, 2013 2:15pm 13.4 G/DL N 11.5-16.0 Human Chorionic Gonadotropin, Quant July 02, 2009 8: 35pm < 6 MIU/ML 0-6 Lipase July 02, 2009 8:35pm 215 U/L N 114-286 Lymphocytes # (Auto) February 25, 2013 2:15pm 3.0 X 10^3 N 1.0-4.0 Lymphocytes % (Manual) November 04, 2006 8:33am 6 % - Lymphocytes (%) (Auto) February 25, 2013 2:15pm 47 % H 12-44 Marijuana (THC) Screen May 19, 2006 10:55am Negative - Mean Corpuscular Hemoglobin February 25, 2013 2:15pm 26 PG N 25-34 Mean Corpuscular Hemoglobin Concent February 25, 2013 2: 15pm 34 G/DL N 32-36 Mean Corpuscular Volume February 25, 2013 2:15pm 77 FL L 80-99 Mean Platelet Volume February 25, 2013 2:15pm 11.3 FL H 7.4-10.4 Microcytosis November 04, 2006 8:33am Slight - Monocytes # (Auto) February 25, 2013 2:15pm 0.6 X 10^3 N 0.0-1.0 Monocytes % (Manual) November 04, 2006 8:33am 1 % - Monocytes (%) (Auto) February 25, 2013 2:15pm 9 % N 0-12 Neisseria gonorrhoeae DNA Probe July 09, 2011 8:45pm NEG - Neutrophils # (Auto) February 25, 2013 2:15pm 2.6 X 10^3 N 1.8-7.8 Neutrophils % (Manual) November 04, 2006 8:33am 93 % - Neutrophils (%) (Auto) February 25, 2013 2:15pm 40 % L 42-75 Nucleated Red Blood Cells October 06, 2005 11:30am 1 - Opiates Screen May 19, 2006 10:55am Negative - Plasma/Serum Blood Alcohol December 24, 2010 1:03pm NEG - Platelet Count February 25, 2013 2:15pm 193 10^3/uL N 130-400 Platelet Estimate October 06, 2005 11:30am Lo norm - Potassium Level April 23, 2012 12:30am 3.4 MMOL/L L 3.6-5.0 Prothromb Time International Ratio February 14, 2011 10: 31pm 1.2 N 0.8-1.4 Prothrombin Time February 14, 2011 10:31pm 15.4 SEC H 12.2-14.7 RBC Morphology Bizarre Forms October 06, 2005 11:30am Normal - Reactive Lymphocytes October 06, 2005 11:30am 2 - Red Blood Count February 25, 2013 2:15pm 5.18 10^6/uL N 4.35-5.85 Red Cell Distribution Width February 25, 2013 2:15pm 14.5 % N 10.0-14.5 Salicylates Level April 23, 2012 12:30am 3.9 MG/DL N 2.8-20.0 Salicylates Screen December 24, 2010 1:03pm NEG - Serum Test, Qualitative April 23, 2012 12:30am NEGATIVE - Sodium Level April 23, 2012 12:30am 135 MMOL/L N 135-145 Total Bilirubin July 02, 2009 8:35pm 0.2 MG/DL N 0.0-1.0 Total Protein July 02, 2009 8:35pm 7.1 G/DL N 6.4-8.2 Tricyclic Antidepressants Screen December 24, 2010 1:03pm NEG - Ur Tricyclic Antidepressants Screen February 25, 2013 2: 09pm NEGATIVE - Urine Amorphous Sediment October 06, 2005 11:15am Large mac phosphate H - Urine Amphetamines Screen February 25, 2013 2:09pm POSITIVE H - Urine Bacteria July 09, 2011 7:35pm NEGATIVE - Urine Barbiturates Screen February 25, 2013 2:09pm NEGATIVE - Urine Benzodiazepines Screen February 25, 2013 2:09pm NEGATIVE - Urine Bilirubin July 09, 2011 7:35pm NEGATIVE - Urine Casts July 09, 2011 7:35pm NONE - Urine Clarity July 09, 2011 7:35pm CLEAR - Urine Cocaine Screen February 25, 2013 2:09pm NEGATIVE - Urine Color July 09, 2011 7:35pm YELLOW - Urine Crystals July 09, 2011 7:35pm NONE - Urine Culture Indicated July 09, 2011 7:35pm NO - Urine Glucose (UA) July 09, 2011 7:35pm NEGATIVE - Urine HCG, Qualitative October 06, 2005 11:30am Negative - Urine Ketones July 09, 2011 7:35pm NEGATIVE - Urine Leukocyte Esterase July 09, 2011 7:35pm NEGATIVE - Urine Methamphetamines Screen February 25, 2013 2:09pm POSITIVE H - Urine Mucus July 09, 2011 7:35pm NEGATIVE - Urine Nitrate October 06, 2005 11:15am Negative - Urine Nitrite July 09, 2011 7:35pm NEGATIVE - Urine Opiates Screen February 25, 2013 2:09pm POSITIVE H - Urine Phencyclidine Screen February 25, 2013 2:09pm NEGATIVE - Urine Test May 19, 2006 10:55am Negative - Urine Propoxyphene Screen February 25, 2013 2:09pm NEGATIVE - Urine Protein July 09, 2011 7:35pm NEGATIVE - Urine RBC July 09, 2011 7:35pm 10-25 /HPF H - Urine Specific Kila July 09, 2011 7:35pm 1.010 L - Urine Squamous Epithelial Cells July 09, 2011 7:35pm 2-5 - Urine Urobilinogen July 09, 2011 7:35pm NORMAL MG/DL - Urine WBC July 09, 2011 7:35pm RARE /HPF - Urine pH July 09, 2011 7:35pm 6.5 - White Blood Count February 25, 2013 2:15pm 6.4 10^3/uL N 4.3-11.0 Barbiturate Screen May 19, 2006 10:55am Negative - Serum Alcohol April 23, 2012 12:30am 291 MG/DL H -5 Estimat Glomerular Filtration Rate April 23, 2012 12: 30am > 60 - Blood Barbiturates Screen December 24, 2010 1:03pm NEG - Blood Benzodiazepines Screen December 24, 2010 1:03pm NEG - Urine Oxycodone Screen February 25, 2013 2:09pm NEGATIVE - Urine Methadone Screen February 25, 2013 2:09pm NEGATIVE - Urine Cannabinoids Screen February 25, 2013 2:09pm NEGATIVE - Serum Drug Screen December 24, 2010 1:03pm NEG - Urine Buprenorphine February 25, 2013 2:09pm NEGATIVE - Urine RBC (Auto) July 09, 2011 7:35pm 3+ H - Procedures Procedure Code Date LAPAROSCOPIC CHOLECYSTECTOMY 51.23 INTRAOPER CHOLANGIOGRAM 87.53 10/06/05 CONIZATION OF CERVIX 21688 05/19/06 LOW CERVICAL 74.1 03/29/08 INSTRUMENT DELIVERY NOS 72.9 03/29/08 LOW CERVICAL 74.1 12/23/10 Genital Culture 07/09/11 MRSA Screen 04/23/12 Urine Culture 07/10/05 Encounters Encounter Location Date/Time Departed Emergency Room [facility] 08/10 1:09pm Discharged Inpatient [facility] 1:56am
--- OUTSIDE RECORDS SUMMARY | 2018-09-16 10:46 | XMS REPORT | Continuity of Care Document ---
Author Organization Unknown Address Unknown Allergies Active Description Code Type Severity Reaction Onset Reported/Identified Relationship to Patient Clinical Status Yes morphine [id number] Drug Allergy Severe SOA, HIVES 01/29/2012 Yes morphine [id number] Drug Allergy Unknown N/A 02/09/2017 Medications There is no data. Problems Date Dx Coded Attending Type Code Diagnosis Diagnosed By 12/05/2008 DIRK CLINTON APRN 461.9 SINUSITIS ACUTE 12/05/2008 DIRK CLINTON APRN 919.4 INSECT BITE NONVENOMOUS OF OTHER MULTIPLE AND UNSPECIFIED SITES WITHOUT INFECTION 12/05/2008 DENNIS JACOBS DO 461.9 SINUSITIS ACUTE 12/05/2008 DENNIS JACOBS DO 919.4 INSECT BITE NONVENOMOUS OF OTHER MULTIPLE AND UNSPECIFIED SITES WITHOUT INFECTION 07/09/2011 Ot 623.8 NONINFLAM DIS VAGINA NEC 01/29/2012 Ot 623.8 NONINFLAM DIS VAGINA NEC 01/29/2012 Ot 626.6 METRORRHAGIA 05/06/2012 Ot 824.8 FX ANKLE NOS- CLOSED 05/06/2012 Ot 959.7 LOWER LEG INJURY NOS 05/06/2012 Ot E000.8 OTHER EXTERNAL CAUSE STATUS 05/06/2012 Ot E001.0 ACTIVITIES INVOLVING WALKING, MARCHING A 05/06/2012 Ot E849.0 ACCIDENT IN HOME 05/06/2012 Ot E880.9 FALL ON STAIR/STEP NEC 02/25/2013 COLE JEWELL Ot 305.90 DRUG ABUSE NEC-UNSPEC 02/25/2013 COLE JEWELL Ot 682.6 CELLULITIS OF LEG 02/25/2013 COLE JEWELL Ot 782.2 LOCAL SUPRFICIAL SWELLNG 03/02/2013 HARRISON PARRA MD Ot 682.6 CELLULITIS OF LEG 05/28/2014 MADL SHOW HOST OR HOSTESS, DIRK L 070.54 CHRONIC HEPATITIS C WITHOUT HEPATIC COMA 05/28/2014 DIRK CLINTON APRN L 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 USE 05/28/2014 DENNIS JACOBS DO K 070.54 CHRONIC HEPATITIS C WITHOUT HEPATIC COMA 05/28/2014 DENNIS JACOBS DO K 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 USE 12/07/2016 LINDSEY SOTO APRN Ot N92.0 EXCESSIVE AND FREQUENT MENSTRUATION WITH 12/07/2016 LINDSEY SOTO APRN Ot N93.9 ABNORMAL UTERINE AND VAGINAL BLEEDING, U 12/07/2016 LINDSEY SOTO APRN Ot Z86.19 PERSONAL HISTORY OF OTHER INFECTIOUS AND 12/07/2016 LINDSEY SOTO APRN Ot Z87.59 PERSONAL HISTORY OF COMP OF PREG, CHLDBR 12/07/2016 LINDSEY SOTO APRN Ot Z90.49 ACQUIRED ABSENCE OF OTHER SPECIFIED PART 12/07/2016 LINDSEY SOTO APRN Ot Z98.51 TUBAL LIGATION STATUS 12/09/2016 LINDSEY SOTO APRN Ot N92.0 EXCESSIVE AND FREQUENT MENSTRUATION WITH 12/09/2016 LINDSEY SOTO APRN Ot N93.9 ABNORMAL UTERINE AND VAGINAL BLEEDING, U 12/09/2016 LINDSEY SOTO APRN Ot Z86.19 PERSONAL HISTORY OF OTHER INFECTIOUS AND 12/09/2016 LINDSEY SOTO APRN Ot Z87.59 PERSONAL HISTORY OF COMP OF PREG, CHLDBR 12/09/2016 LINDSEY SOTO APRN Ot Z90.49 ACQUIRED ABSENCE OF OTHER SPECIFIED PART 12/09/2016 LINDSEY SOTO APRN Ot Z98.51 TUBAL LIGATION STATUS 12/09/2016 LINDSEY SOTO APRN Ot N92.0 EXCESSIVE AND FREQUENT MENSTRUATION WITH 12/09/2016 LINDSEY SOTO APRN Ot N93.9 ABNORMAL UTERINE AND VAGINAL BLEEDING, U 12/09/2016 LINDSEY SOTO APRN Ot Z86.19 PERSONAL HISTORY OF OTHER INFECTIOUS AND 12/09/2016 LINDSEY SOTO APRN Ot Z87.59 PERSONAL HISTORY OF COMP OF PREG, CHLDBR 12/09/2016 LINDSEY SOTO APRN Ot Z90.49 ACQUIRED ABSENCE OF OTHER SPECIFIED PART 12/09/2016 LINDSEY SOTO APRN Ot Z98.51 TUBAL LIGATION STATUS 01/28/2017 DIRK CLINTON DENTAL CREAM MAKER Ot N83.201 UNSPECIFIED OVARIAN CYST, RIGHT SIDE 01/28/2017 DIRK CLINTON DENTAL CREAM MAKER Ot N92.1 EXCESSIVE AND FREQUENT MENSTRUATION WITH 11/11/2017 DIRK CLINTON DENTAL CREAM MAKER Ot N83.201 UNSPECIFIED OVARIAN CYST, RIGHT SIDE 11/11/2017 DIRK CLINTON DENTAL CREAM MAKER Ot N92.1 EXCESSIVE AND FREQUENT MENSTRUATION WITH Procedures Code Description [place] [address] [facility] 05/28/2014 19315 CBC 05/28/2014 13884 PT/INR 05/28/2014 47186 HIV ANTIBODIES (RML) 05/28/2014 07809 HEP B SURFACE ANTIBODY 05/28/2014 55109 HEP A ANTIBODY, IGM (RML) 05/28/2014 86620 HEP B SURFACE ANTIGEN (STATE ) 05/28/2014 61010 HEP C PCR QUANT W/UMESH 05/28/2014 49059 [facility] 05/28/2014 09310 CMP 05/28/2014 49908 CBC 05/28/2014 51855 PT/INR 05/28/2014 04413 HIV ANTIBODIES (RML) 05/28/2014 19327 HEP B SURFACE ANTIBODY 05/28/2014 39293 HEP A ANTIBODY, IGM (RML) 05/28/2014 68694 HEP B SURFACE ANTIGEN (STATE ) 05/28/2014 57835 HEP C PCR QUANT W/UMESH 05/28/2014 23068 [facility] 05/28/2014 16363 ROUTINE VENIPUNCTURE 05/30/2014 84847 CBC 05/30/2014 35991 [facility] 05/30/2014 17810 PT/INR 05/30/2014 08087 HIV ANTIBODIES (RML) 05/30/2014 39592 HEP B CORE ANTIBODY, IGM 05/30/2014 91901 HEP B SURFACE ANTIBODY 05/30/2014 15225 HEP A ANTIBODY, IGM (RML) 05/30/2014 43012 [facility] 05/30/2014 Results Test Result Range Pap Lb, HPV-hr - 08/11/16 08:56 HPV, high-risk Positive Negative DIAGNOSIS: Comment Specimen adequacy: Comment Clinician provided ICD10: Comment Performed by: Comment Electronically signed by: Comment . . Pathologist provided ICD10: Comment Note: Comment Genital Culture, Routine - 08/11/16 08:56 Genital Culture, Routine Note Pathology Report - 09/04/16 14:23 . Comment . Comment . Comment . Comment . Comment . Comment . Comment Complete blood count (CBC) with automated white blood cell (WBC) differential - 12/07/16 12:50 Blood leukocytes automated count (number/volume) 5.9 10*3/uL 4.3-11.0 Blood erythrocytes automated count (number/volume) 4.94 10*6/uL 4.35-5.85 Venous blood hemoglobin measurement (mass/volume) 13.2 g/dL 11.5-16.0 Blood hematocrit (volume fraction) 40 % 35-52 Automated erythrocyte mean corpuscular volume 81 [foz_us] 80-99 Automated erythrocyte mean corpuscular hemoglobin (mass per erythrocyte) 27 pg 25-34 Automated erythrocyte mean corpuscular hemoglobin concentration measurement ( mass/volume) 33 g/dL 32-36 Automated erythrocyte distribution width ratio 14.8 % 10.0-14.5 Automated blood platelet count (count/volume) 197 10*3/uL 130-400 Automated blood platelet mean volume measurement 11.7 [foz_us] 7.4-10.4 Automated blood neutrophils/100 leukocytes 61 % 42-75 Automated blood lymphocytes/100 leukocytes 29 % 12-44 Blood monocytes/100 leukocytes 8 % 0-12 Automated blood eosinophils/100 leukocytes 2 % 0-10 Automated blood basophils/100 leukocytes 0 % 0-10 Blood neutrophils automated count (number/volume) 3.6 10*3 1.8-7.8 Blood lymphocytes automated count (number/volume) 1.7 10*3 1.0-4.0 Blood monocytes automated count (number/volume) 0.5 10*3 0.0-1.0 Automated eosinophil count 0.1 10*3/uL 0.0-0.3 Automated blood basophil count (count/volume) 0.0 10*3/uL 0.0-0.1 Complete urinalysis with reflex to culture - 12/07/16 13:00 Urine color determination YELLOW NRG Urine clarity determination CLEAR NRG Urine pH measurement by test strip 7 5-9 Specific gravity of urine by test strip 1.010 1.016- 1.022 Urine protein assay by test strip, semi-quantitative NEGATIVE NEGATIVE Urine glucose detection by automated test strip NEGATIVE NEGATIVE Erythrocytes detection in urine sediment by light microscopy 4+ NEGATIVE Urine ketones detection by automated test strip NEGATIVE NEGATIVE Urine nitrite detection by test strip NEGATIVE NEGATIVE Urine total bilirubin detection by test strip NEGATIVE NEGATIVE Urine urobilinogen measurement by automated test strip (mass/volume) NORMAL NORMAL Urine leukocyte esterase detection by dipstick 1+ NEGATIVE Automated urine sediment erythrocyte count by microscopy (number/high power field) [HPF] NRG Automated urine sediment leukocyte count by microscopy (number/high power field ) [HPF] NRG Bacteria detection in urine sediment by light microscopy NEGATIVE NRG Squamous epithelial cells detection in urine sediment by light microscopy 2-5 NRG Crystals detection in urine sediment by light microscopy NONE NRG Casts detection in urine sediment by light microscopy NONE NRG Mucus detection in urine sediment by light microscopy NEGATIVE NRG Complete urinalysis with reflex to culture NO NRG CBC With Differential/Platelet - 01/06/17 09:56 WBC 6.9 x10E3/uL 3.4-10.8 RBC 5.11 x10E6/uL 3.77-5.28 Hemoglobin 13.7 g/dL 11.1-15.9 Hematocrit 43.0 % 34.0-46.6 MCV 84 fL 79-97 MCH 26.8 pg 26.6-33.0 MCHC 31.9 g/dL 31.5-35.7 RDW 14.2 % 12.3-15.4 Platelets 200 x10E3/uL 150-379 Neutrophils 60 % Lymphs 31 % Monocytes 7 % Eos 2 % Basos 0 % Neutrophils (Absolute) 4.1 x10E3/uL 1.4-7.0 Lymphs (Absolute) 2.1 x10E3/uL 0.7-3.1 Monocytes(Absolute) 0.5 x10E3/uL 0.1-0.9 Eos (Absolute) 0.1 x10E3/uL 0.0-0.4 Baso (Absolute) 0.0 x10E3/uL 0.0-0.2 Immature Granulocytes 0 % Immature Grans (Abs) 0.0 x10E3/uL 0.0-0.1 Comp. Metabolic Panel (14) - 01/06/17 09:56 Glucose, Serum 115 mg/dL 65-99 BUN 10 mg/dL 6-20 Creatinine, Serum 0.68 mg/dL 0.57-1.00 eGFR If NonAfricn Am 116 mL/min/1.73 >59 eGFR If Africn Am 134 mL/min/1.73 >59 BUN/Creatinine Ratio 15 9-23 Sodium, Serum 139 mmol/L 134-144 Potassium, Serum 4.2 mmol/L 3.5-5.2 Chloride, Serum 101 mmol/L 96-106 Carbon Dioxide, Total 24 mmol/L 18-29 Calcium, Serum 9.0 mg/dL 8.7-10.2 Protein, Total, Serum 6.7 g/dL 6.0-8.5 Albumin, Serum 4.2 g/dL 3.5-5.5 Globulin, Total 2.5 g/dL 1.5-4.5 A/G Ratio 1.7 1.2-2.2 Bilirubin, Total 0.2 mg/dL 0.0-1.2 Alkaline Phosphatase, S 86 IU/L 39-117 AST (SGOT) 16 IU/L 0-40 ALT (SGPT) 17 IU/L 0-32 TSH - 01/24/18 12:10 TSH 2.13 mIU/L NRG Encounters ACCT No. Visit Date/Time Discharge Status Pt. Type Provider Facility Loc./Unit Complaint [id number] 12/29/2017 12:36:01 ACT Unknown [id number] 01/07/2017 08:07:00 Document Registration [id number] 07/11/2018 10:00:00 07/11/2018 23:59:59 CLS Outpatient RIVAS MICHAELS APRN [facility] [id number] 01/24/2018 11:40:00 Document Registration [id number] 12/08/2017 09:13:00 12/08/2017 23:59:59 CLS Preadmit RADHA SIMS APRN [facility] REHAB R HIP PAIN [id number] 01/15/2017 13:16:00 01/15/2017 23:59:59 CLS Outpatient DIRK CLINTONP [facility] RAD N92.1 [id number] 12/07/2016 12:40:00 12/07/2016 13:31:00 DIS Emergency LINDSEY SOTO APRN [facility] ER MENSTRUAL ISSUES (HEAVY BLEEDING) [id number] 03/02/2013 13:09:00 03/02/2013 15:00:00 DIS Emergency FIDEL GUSTAFSON, HARRISON Duvall [facility] ER ABSCESS ON LEG [id number] 02/25/2013 12:02:00 02/25/2013 17:00:00 DIS Emergency COLE JEWELL [facility] ER POSS SPIDER BITE [id number] 09/16/2018 10:06:00 ACT Emergency YI GUSTAFSON, CAROLYN Light [facility] ER CHEST PAIN [id number] 05/06/2012 09:30:00 Document Registration [id number] 01/29/2012 11:17:00 Document Registration [id number] 07/09/2011 18:15:00 Document Registration [id number] 05/30/2014 14:46:00 05/30/2014 23:59:59 CLS Outpatient REYNALDO DENNIS aJdiel [id number] 05/28/2014 09:56:00 05/28/2014 23:59:59 CLS Outpatient DIRK CLINTON APRN [id number] 09/08/2016 22:07:00 Document Registration [id number] 02/09/2017 15:26:00 02/10/2017 09:59:00 DIS Inpatient JOSE ALFREDO GUSTAFSON, [facility] MED/SURG LAV, RIGHT OOPHORECTOMY, SPARING LEFT [id number] 11/19/2017 17:36:36 ACT Document Registration [id number] 08/19/2016 12:10:00 Document Registration [id number] 08/14/2016 15:09:00 Document Registration
--- OUTSIDE RECORDS SUMMARY | 2018-09-16 10:46 | XMS REPORT | Continuity of Care Document ---
Author Author [facility] Organization [facility] Address Unknown Phone Unavailable Care Team Providers Care Panel Machine Setter Name Role Phone NO, LOCAL PHYSICIAN PP Unavailable Insurance Providers Payer Name Policy Number Subscriber Name Relationship Self Pay Dru Huynh 01 Self / Same As Patient Advance Directives Directive Response Recorded Date Advance Directives N 02/25/13 12:14pm Health Care Power of Owner Oral Surgeon N 02/25/13 12:14pm Organ Donor N 02/25/13 12:14pm Problems No Known Problems or Medical conditions. 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 Procedures Procedure Code Date LAPAROSCOPIC CHOLECYSTECTOMY 51.23 INTRAOPER CHOLANGIOGRAM 87.53 10/06/05 CONIZATION OF CERVIX 04672 05/19/06 LOW CERVICAL 74.1 03/29/08 INSTRUMENT DELIVERY NOS 72.9 03/29/08 LOW CERVICAL 74.1 12/23/10 Encounters Encounter Location Date/Time Departed Emergency Room [facility] 12:02pm Discharged Inpatient [facility] 1:56am
[2018-09-16 10:51] LABS: ALANINE AMINOTRANSFERASE 18 U/L (0-55); ALBUMIN 4.1 GM/DL (3.2-4.5); ALKALINE PHOSPHATASE 92 U/L (40-136); BILIRUBIN,TOTAL 0.6 MG/DL (0.1-1.0); BUN/CREATININE RATIO 14; CALCIUM 9.2 MG/DL (8.5-10.1); CARBON DIOXIDE 22 MMOL/L (21-32); CHLORIDE 108 MMOL/L (98-107); CREATININE SERUM 0.76 MG/DL (0.60-1.30); GFR ESTIMATED > 60; GLUCOSE 118 MG/DL (70-105); LIPASE 17 U/L (8-78); POTASSIUM 3.6 MMOL/L (3.6-5.0); SODIUM 140 MMOL/L (135-145)
--- NOTE | 2018-09-16 10:54 | ED Chest Pain ---
General Chief Complaint: Chest Pain Stated Complaint: CHEST PAIN Nursing Triage Note: PT AMB TO RM 5 WITH COMPLAINT OF CHEST PAIN. PT STATES CHEST PAIN HAS BEEN INTERMITTENT FOR THE LAST 2 WEEKS. STATES AT THE WORST IT IS A 10/10. PT STATES PAIN IS IN THE CENTER OF HER CHEST. STATES SHE HAS HAD A CONSTANT DULL PAIN THE LAST TWO DAYS. Nursing Sepsis Screen: No Definite Risk Source: patient Exam Limitations: no limitations History of Present Illness Date Seen by Provider: Sep 16, 2018 Time Seen by Provider: 10:08 Initial Comments This 33-year-old young lady presents to the emergency room with complaints of substernal chest pain 2 weeks. She describes it as a "crushing" sensation. It sometimes hurts worse with deep breathing but is generally constant. She has some associated cold sweats. The pain causes her to feel short of breath. She initially assumed that this was anxiety but found herself experiencing pain even when calm and at rest. She denies any nausea or vomiting. She denies any drugs use. She has a remote history of methamphetamine use. She occasionally drinks alcohol. She does smoke. She has extensive family history of cardiovascular disease. Her primary care provider is Jose Cruz Baez at [facility]. Allergies and Home Medications Allergies Coded Allergies: morphine (Verified Allergy, Severe, SOA, HIVES, 01/29/12) Patient Home Medication List Home Medication List Reviewed: Yes Review of Systems Review of Systems Constitutional: see HPI EENTM: No Symptoms Reported Respiratory: See HPI Cardiovascular: See HPI Gastrointestinal: No Symptoms Reported Genitourinary: No Symptoms Reported Musculoskeletal: no symptoms reported Skin: see HPI Psychiatric/Neurological: See HPI Endocrine: No Symptoms Reported Hematologic/Lymphatic: No Symptoms Reported Past Btbaffp-Fqlfhb-Pdoapp Hx Past Med/Social Hx: Reviewed and Corrections made Patient Social History Alcohol Use: Occasionally Uses Number of Drinks Today: Alcohol Beverage of Choice: Wine Recreational Drug Use: No (PAST HX MARIJUANA) Smoking Status: Current Everyday Smoker Type Used: Cigarettes Recent Foreign Travel: No Contact w/Someone Who Travel: No Recent Infectious Disease Expo: No Recent Hopitalizations: No Immunizations Up To Date Tetanus Booster (TDap): More than 5yrs Seasonal Allergies Seasonal Allergies: Yes Past Medical History Surgeries: Yes (THA.;TONSILS AND ADAMARIS.;;LEEP PROCEDURE) Adenoidectomy, Section, Gallbladder, Hysterectomy, Tonsillectomy Respiratory: No Cardiac: No Neurological: No Reproductive Disorders: No 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 2.0oz. 108.067629we; 30.95 BMI Method:Stated General Appearance: No Apparent Distress, WD/WN HEENT: PERRL/EOMI, Normal ENT Inspection Neck: Normal Inspection Respiratory: Chest Non Tender, Lungs Clear, Normal Breath Sounds, No Accessory Muscle Use, No Respiratory Distress Cardiovascular: Regular Rate, Rhythm, No Edema, No Murmur Gastrointestinal: Normal Bowel Sounds, Non Tender, Soft Extremity: Normal Inspection, Non Tender, No Calf Tenderness, No Pedal Edema, Other (negative Petey) Neurologic/Psychiatric: Alert, Oriented x3, No Motor/Sensory Deficits, Normal Mood/Affect, eye specialist II-XII Norm as Tested Skin: Normal Color, Warm/Dry Progress/Results/Core Measures Results/Orders Lab Results Laboratory Tests Test 09/16/18 10:20 09/16/18 12:00 09/16/18 13:07 Range/Units White Blood Count 6.8 4.3-11.0 10^3/uL Red Blood Count 5.09 4.35-5.85 10^6/uL Hemoglobin 13.5 11.5-16.0 G/DL Hematocrit 41 35-52 % Mean Corpuscular Volume 80 80-99 FL Mean Corpuscular Hemoglobin 27 25-34 PG Mean Corpuscular Hemoglobin Concent 33 32-36 G/DL Red Cell Distribution Width 14.1 10.0-14.5 % Platelet Count 230 130-400 10^3/uL Mean Platelet Volume 11.2 H 7.4-10.4 FL Neutrophils (%) (Auto) 68 42-75 % Lymphocytes (%) (Auto) 21 12-44 % Monocytes (%) (Auto) 9 0-12 % Eosinophils (%) (Auto) 3 0-10 % Basophils (%) (Auto) 0 0-10 % Neutrophils # (Auto) 4.6 1.8-7.8 X 10^3 Lymphocytes # (Auto) 1.4 1.0-4.0 X 10^3 Monocytes # (Auto) 0.6 0.0-1.0 X 10^3 Eosinophils # (Auto) 0.2 0.0-0.3 10^3/uL Basophils # (Auto) 0.0 0.0-0.1 10^3/uL Prothrombin Time 15.5 H 12.2-14.7 SEC INR Comment 1.2 0.8-1.4 Activated Partial Thromboplast Time 39 H 24-35 SEC Sodium Level 140 135-145 MMOL/L Potassium Level 3.6 3.6-5.0 MMOL/L Chloride Level 108 H 98-107 MMOL/L Carbon Dioxide Level 22 21-32 MMOL/L Anion Gap 10 5-14 MMOL/L Blood Urea Nitrogen 11 7-18 MG/DL Creatinine 0.76 0.60-1.30 MG/DL Estimat Glomerular Filtration Rate > 60 BUN/Creatinine Ratio 14 Glucose Level 118 H 70-105 MG/DL Calcium Level 9.2 8.5-10.1 MG/DL Corrected Calcium 9.1 8.5-10.1 MG/DL Magnesium Level 2.0 1.8-2.4 MG/DL Total Bilirubin 0.6 0.1-1.0 MG/DL Aspartate Amino Transf (AST/SGOT) 18 5-34 U/L Alanine Aminotransferase (ALT/SGPT) 18 0-55 U/L Alkaline Phosphatase 92 40-136 U/L Myoglobin 39.3 10.0-92.0 NG/ML Troponin I < 0.028 < 0.028 <0.028 NG/ML Total Protein 7.0 6.4-8.2 GM/DL Albumin 4.1 3.2-4.5 GM/DL Lipase 17 8-78 U/L Urine Opiates Screen NEGATIVE NEGATIVE Urine Oxycodone Screen NEGATIVE NEGATIVE Urine Methadone Screen NEGATIVE NEGATIVE Urine Propoxyphene Screen NEGATIVE NEGATIVE Urine Barbiturates Screen NEGATIVE NEGATIVE Ur Tricyclic Antidepressants Screen NEGATIVE NEGATIVE Urine Phencyclidine Screen NEGATIVE NEGATIVE Urine Amphetamines Screen NEGATIVE NEGATIVE Urine Methamphetamines Screen NEGATIVE NEGATIVE Urine Benzodiazepines Screen NEGATIVE NEGATIVE Urine Cocaine Screen NEGATIVE NEGATIVE Urine Cannabinoids Screen NEGATIVE NEGATIVE My Orders Orders - CAROLYN RICHMOND MD Cbc With Automated Diff (09/16/18 10:16) Magnesium (09/16/18 10:16) Chest 1 View, Ap/Pa Only (09/16/18 10:16) Ekg Tracing (09/16/18 10:16) Cardiac Profile 1 (09/16/18 10:16) Comprehensive Metabolic Panel (09/16/18 10:16) Myoglobin Serum (09/16/18 10:16) Protime With Inr (09/16/18 10:16) Partial Thromboplastin Time (09/16/18 10:16) O2 (09/16/18 10:16) Monitor-Rhythm Ecg Trace Only (09/16/18 10:16) Lipid Panel (09/17/18 06:00) Ed Iv/Invasive Line Start (09/16/18 10:16) Lipase (09/16/18 10:16) Lidocaine 2% Viscous 15 Ml (Xylocaine Vi (09/16/18 10:30) Antacid Suspension (Mylanta Suspension (09/16/18 10:30) Nitroglycerin 0.4 Mg Btl 25's (Nitrostat (09/16/18 11:15) Aspirin Chewable Tablet (Baby Aspirin Ch (09/16/18 11:15) Nitroglycerin 0.4 Mg Btl 25's (Nitrostat (09/16/18 11:05) Aspirin Chewable Tablet (Baby Aspirin Ch (09/16/18 11:05) Troponin I (09/16/18 13:20) Drug Screen Stat (Urine) (09/16/18 11:54) Medications Given in ED Current Medications Medications Dose Ordered Sig/Stoney Route Start Time Stop Time Status Last Admin Dose Admin Al Hydrox/Mg Hydrox/Simethicone 30 ml ONCE ONCE PO 09/16/18 10:30 09/16/18 10:31 DC 09/16/18 10:20 30 ML Aspirin 324 mg ONCE ONCE PO 09/16/18 11:15 09/16/18 11:16 DC 09/16/18 11:09 324 MG Lidocaine HCl 15 ml ONCE ONCE PO 09/16/18 10:30 09/16/18 10:31 DC 09/16/18 10:20 15 ML Nitroglycerin 0.4 mg UD PRN SL 09/16/18 11:15 09/16/18 11:09 0.4 MG Vital Signs/I&O 09/16/18 10:06 Temp 98.0 Pulse 77 Resp 17 B/P (MAP) 178/117 (137) Pulse Ox 100 O2 Delivery Room Air Blood Pressure Mean: 137 Progress Progress Note #1: Time: 10:53 Progress Note Chest pain protocol is being used to evaluate this patient. GI cocktail was given with no improvement in pain. Aspirin and nitroglycerin will now be given. Progress Note #2: Time: 11:31 Progress Note Patient had no relief in pain from her GI cocktail. However, she had immediate relief with nitroglycerin. I discussed the case with Dr. White who recommends a three-hour troponin rule out. Progress Note #3: Time: 12:23 Progress Note Patient is still pain-free. Dr. White has been to the ER to assess the patient. Three-hour troponin study will be drawn at 13:20. Progress Note #4: Time: 14:13 Progress Note Repeat troponin was negative. Patient remains pain-free. However, she is quite anxious and tearful at this time. We discussed her anxiety and methods of managing it. I encouraged her to follow-up in the outpatient setting with her primary care provider and some type of counseling service. Initial ECG Impression Date: Sep 16, 2018 Initial ECG Impression Time: 10:13 Initial ECG Rate: 67 Initial ECG Rhythm: Normal Sinus Comment Normal sinus rhythm with no ST elevation or depression. No significant changes and interval or axis deviation. Diagnostic Imaging Diagonstic Imaging: Xray Plain Films/CT/US/NM/MRI: chest Comments NAME: [facility] REC#: [id number] PT STATUS: REG ER : 1985 PHYSICIAN: CAROLYN RICHMOND MD ADMIT DATE: 09/16/18/ER Draft Date of Exam:09/16/18 CHEST 1 VIEW, AP/PA ONLY INDICATION: Chest pain. TIME OF EXAM: 10:37 AM No prior studies are available for comparison. FINDINGS: The heart size is normal. The pulmonary vascularity is unremarkable. The lungs are clear. No infiltrate, effusion or pneumothorax is detected. IMPRESSION: No acute cardiopulmonary process is detected. Dictated on workstation # [id number] Dict: 09/16/18 1048 Trans: 09/16/18 1051 [id number] Interpreted by: MERCY GIVENS MD Reviewed: Reviewed by Me Departure Impression Primary Impression: Chest pain Qualified Codes: R07.9 - Chest pain, unspecified Additional Impression: Anxiety Disposition: HOME, SELF-CARE Condition: Improved Departure-Patient Inst. Decision time for Depature: 14:14 Referrals: RADHA SIMS APRN (PCP) Primary Care Physician [facility] (Family) Primary Care Physician Israel WHITE MD Patient Instructions: Anxiety, Adult (DC), Chest Pain (DC) Add. Discharge Instructions: Follow-up with Dr. White as soon as possible. Call his office today or Wednesday morning for an appointment time. Take a baby aspirin (81 mg) daily until otherwise instructed. Work toward quitting smoking. Eat a healthy well balanced diet. Engage in appropriate exercise as often as possible. Return to the emergency room if you have worsening symptoms. All discharge instructions reviewed with patient and/or family. Voiced understanding. Copy Copies To 1: DENNIS JACOBS DO Copies To 2: Israel WHITE MD, JOSHUA T MD Sep 16, 2018 10:54
[2018-09-16] MEDS ORDERED: NITROGLYCERIN 0.4 MG SL TABS BTL 25'S SL ONE (11:05)
[2018-09-16] MEDS ORDERED: ASPIRIN 81 MG CHEW (CHILDREN'S ASA) ONE (11:05)
[2018-09-16] MEDS ORDERED: NITROGLYCERIN 0.4 MG SL TABS BTL 25'S SL PRN (11:15)
[2018-09-16] MEDS ORDERED: ASPIRIN 81 MG CHEW (CHILDREN'S ASA) PO ONE (11:15)
--- NOTE | 2018-09-16 11:56 | Consultation-Cardiology ---
HPI-Cardiology Cardiology Consultation: Date of Consultation 09/16/18 Date of Admission Attending Physician Admitting Physician Fahad Plunkett Aprn Consulting Physician Israel WHITE MD HPI: Time Seen by a Provider: 11:56 Chief Complaint: Chest pain This is a 33-year-old lady with history of active smoking and significant family history of CAD. She presents with chest pain for the last 2 days. Substernal. No exacerbating or relieving factors. Mild improvement with nitroglycerin. Moderate intensity. No associated cardiac symptoms. Review of Systems-Cardiology Review of Systems Constitutional: As described under HPI; No As described under HPI, No no symptoms reported, No chills, No fever, No lightheadedness Eyes: No As described under HPI, No no symptoms reported, No blindness, No blurred vision, No contact lenses, No drainage, No decreased acuity, No foreign body sensation, No pain, No vision change Ears/Nose/Throat: No As described under HPI, No no symptoms reported, No chronic hearing loss, No ear discharge, No ear pain, No nasal drainage, No ulcerations Respiratory: No no symptoms reported; As described under HPI; No As described under HPI, No cough, No orthopnea, No shortness of breath, No SOB with excertion Cardiovascular: No no symptoms reported; As described under HPI; No As described under HPI; chest pain; No edema, No irregular heart rate, No lightheadedness, No palpitations Gastrointestinal: No no symptoms reported, No As described under HPI, No abdomen distended, No abdominal pain, No blood streaked bowels, No constipation , No diarrhea, No nausea, No vomiting, No stool coloration changes Genitourinary: No As described under HPI, No burning, No dysuria, No discharge , No frequency, No flank pain, No hematuria, No urgency : Yes : No Skin: No rash, No skin related problems, No ulcerations Psychiatric/Neurological: No anxiety, No depression, No seizure, No focal weakness, No syncope Hematologic: No bleeding abnormalities ENI-Uhmpfm-Ptvkzp Hx Patient Social History Alcohol Use: Occasionally Uses Recreational Drug Use: No (PAST HX MARIJUANA) Smoking Status: Current Everyday Smoker Type Used: Cigarettes Recent Foreign Travel: No Recent Infectious Disease Expo: No Hospitalization with Isolation: Denies Immunizations Up To Date Tetanus Booster (TDap): More than 5yrs Past Medical History PMH As described under Assessment. Allergies and Home Medications Allergies Coded Allergies: morphine (Verified Allergy, Severe, SOA, HIVES, 01/29/12) Patient Home Medication List Home Medication List Reviewed: Yes Physical Exam-Cardiology Physical Exam Vital Signs/I&O Capillary Refill : Less Than 3 Seconds Constitutional: appears stated age, AAO x 3; No apparent distress; well- developed, well-nourished HEENT: PERRL; No normal ENT inspection, No TMs normal, No pharynx normal, No scleral icterus (R), No scleral icterus (L), No pale conjunctivae (R), No pale conjunctivae (L), No photophobia, No TM abnormal (R), No TM abnormal (L), No pharyngeal erythema, No tonsillar exudate, No other, No discharge, No EOMI; hearing is well preserved; No hard of hearing; oral hygience is good; No ulceration, No xanthelasmas are seen Neck: No non-tender, No full range of motion, No supple, No normal inspection, No carotid bruit, No limited range of motion, No lymphadenopathy (R), No lymphadenopathy (L), No tender lateral, No tender midline, No thyromegaly, No other; carotid pulses are 2 + bilaterally; No with good upstrokes Respiratory: No accessory muscle use, No respiratory distress, No chest tender , No chest expansion is symmetric; chest is bilaterally symmetric; No lungs clear to percussion; lungs clear to auscultation; No crackles, No rhonchi, No rales, No stridor, No wheezing, No pleural rub, No other Cardiovascular: regular rate-rhythm; No irregularly irregular, No extra beats, No parasternal heave is noted, No JVD, No edema, No bradycardia, No tachycardia , No point of maximal impulse, No cardiac thrills are palpable; S1 and S2; No gallop/S3, No gallop/S4, No diastolic murmur, No systolic murmur, No friction rub, No click, No other Gastrointestinal: No tender, No soft, No round, No distended, No pulsatile mass , No organomegaly, No guarding, No rebound, No tenderness, No hernia, No mass, No audible bowel sounds, No abnormal bowel sounds, No abdominal bruits, No spleenomegaly, No other Rectal: deferred Extremities: No normal range of motion, No non-tender, No normal inspection, No pedal edema, No calf tenderness, No normal capillary refill, No pelvis stable , No calf tenderness, No inflammation, No pedal edema, No slow capillary refill , No swelling, No other, No abrasion, No clubbing, No cyanosis, No ecchymosis, No laceration, No no lower extremity edema bilateral, No significant edema, No tenderness, No wound Neurologic/Psychiatric: no motor/sensory deficits, alert, normal mood/affect, oriented x 3, power is 5/5 both on sides Skin: No normal color, No warm/dry, No cyanosis, No cool, No diaphoresis, No damp, No ecchymosis, No jaundice, No mottled, No pallor, No rash, No tattoos/ piercings, No ulcerations, No rash on exposed areas, No ulcerations on exposed areas, No other Data Review Labs ECG Impression ECG Initial ECG Rhythm: Normal Sinus Initial ECG Impression: Normal A/P-Cardiology Assessment/Admission Diagnosis Chest pain Plan Acute coronary syndrome was ruled out with serial negative troponin and EKG. Okay to discharge to follow-up early next week for stress testing. I discussed at length with the patient and told her to seek immediate medical attention if chest pain recurs. Thank you for your consultation. Please call me if you have any questions. Clarisse White MD, FACP, FACC, FSCAI, FHRS, CCDS Interventional Cardiology Cardiac Electrophysiology Vascular Medicine and Endovascular Interventions Clinical Quality Measures AMI/AHF: ASA po Prior to arrival: Israel Masters MD Sep 16, 2018 11:56
[2018-09-16 12:20] LABS: AMPHETAMINE SCREEN, URINE NEGATIVE (NEGATIVE); BARBITURATE SCREEN URINE NEGATIVE (NEGATIVE); BENZODIAZEPINES SCREEN URINE NEGATIVE (NEGATIVE); CANNABINOID SCREEN, URINE NEGATIVE (NEGATIVE); COCAINE SCREEN URINE NEGATIVE (NEGATIVE); METHADONE STAT NEGATIVE (NEGATIVE); METHAMPHETAMINE SCREEN URINE S NEGATIVE (NEGATIVE); OPIATE SCREEN URINE NEGATIVE (NEGATIVE); OXYCODONE STAT NEGATIVE (NEGATIVE); PROPOXYPHENE STAT NEGATIVE (NEGATIVE); TRICYCLIC ANTIDEPRESSANTS SCRE NEGATIVE (NEGATIVE)
[2018-09-16 14:30] VITALS: BP 133/86
== END 2018-09-16 14:30 | disposition home or self-care (01) ==
LOC: EDUNIT# 10:05 → ER 10:06
DX: R07.81 Pleurodynia (principal); F41.9 Anxiety disorder, unspecified; F17.210 Nicotine dependence, cigarettes, uncomplicated; Z90.89 Acquired absence of other organs; Z98.890 Other specified postprocedural states; Z90.710 Acquired absence of both cervix and uterus; Z90.49 Acquired absence of other specified parts of digestive tract; Z86.19 Personal history of other infectious and parasitic diseases; Z82.49 Family history of ischemic heart disease and other diseases of the circulatory system; Z88.5 Allergy status to narcotic agent
CPT/HCPCS: 36415; 71045; 80053; 80306; 83690; 83735; 83874; 84484; 85025; 85610; 85730; 93041

== ENCOUNTER 2019-06-05 05:28 | Outpatient (CLI) | payer OTHER ==
[~2019-06-05] VITALS: Ht 162 cm; Wt 118.0 kg
[2019-06-05] MEDS ORDERED: CLON0.1T PO (15:02)
== END 2019-06-05 15:14 | disposition home or self-care (01) ==
LOC: PREOP 05:28
PROVIDERS: ATTEND Obstetrics & Gynecology
DX: Z01.818 Encounter for other preprocedural examination (principal)

== ENCOUNTER 2022-04-28 05:28 | Emergency (ER) | payer SELFPAY ==
[~2022-04-28] VITALS: Ht 162.5 cm; Wt 105.0 kg
[~2022-04-28 05:28] MED LIST changes: +CLN.1T PO; +HYDR-4226 PO; +IBUP-1773 PO
[2022-04-28 05:37] VITALS: BP 160/104
--- NOTE | 2022-04-28 06:12 | ED Back Pain ---
General Chief Complaint: Back Problems Stated Complaint: [facility]LOWER BACK PAIN Nursing Triage Note: Pt presents with c/o back pain after a fall approx 5 days ago. Pt states she slipped and landed on her knees, she has been taking aleve at home for her back pain. Today she reports waking up late last night, around 220th c/o severe lower lumbar pain, and pain above her hips. Pt last took aleve approx 2 hours ago. Source of Information: Patient Exam Limitations: No Limitations History of Present Illness Date Seen by Provider: Apr 28, 2022 Time Seen by Provider: 18:07 Initial Comments Patient is a 26yo femal who presents to the ER with a complaint of lower back pain onset last pm - aching pain that radiates above both hips posteriorly. She states movement in any position intensifies the pain. Going from seated to standing is much worse. The pain does not radiate down her legs or into her groin. No bowel or bladder function issues/incontinence. No numbness. She is quite tearful and anxious. She relates that she had a fall about 5 days ago - [facility] [employer] [facility] and fall onto both knees. No recent illnesses. No burning with urination or fever. no rashes reported. She has used some OTC medications without relief. Location: Paraspinous Muscles (lumbar) Timing/Duration: 2-3 Days Severity: Severe Pain/Injury Location: Back Modifying Factors: Worse With Movement Associated Symptoms: muscle spasms; No numbness in legs/feet, No tingling in legs/feet, No sensory/motor loss; lower back pain; No loss of bladder control, No loss of bowel control Allergies and Home Medications Allergies Coded Allergies: morphine (Verified Allergy, Severe, SOA, HIVES, 06/05/19) topiramate (Verified Allergy, Severe, HALLUCINATIONS, 06/05/19) Patient Home Medication List Home Medication List Reviewed: Yes Clonidine HCl (Clonidine HCl) 0.1 Mg Tablet, 0.1 MG PO HS PRN for ANXIETY, (Reported) Entered as Reported by: KESHAV MCFARLAND on 06/05/19 1502 Hydrocodone/Acetaminophen (Hydrocodone/Acetaminophen 5 MG/325 MG TAB) 1 Each Tablet, 1-2 TAB PO Q6H Prescribed by: GOMEZ GARIBAY on 06/12/19 0726 Hydrocodone/Acetaminophen (Hydrocodone-Acetamin 5-325 mg) 5 Mg-325 Mg Tablet, 1 TAB PO Q6H PRN for PAIN-MODERATE (5-7) Prescribed by: SENDY CHAN on 04/28/22 0746 Ibuprofen (Ibuprofen) 600 Mg Tablet, 600 MG PO Q6H Prescribed by: GOMEZ GARIBAY on 06/12/19 07 Methocarbamol (Methocarbamol) 750 Mg Tablet, 1,500 MG PO Q8H Prescribed by: SENDY CHAN on 04/28/22 0745 Ondansetron (Ondansetron Odt) 4 Mg Tab.rapdis, 4 MG SL Q8H PRN for NAUSEA/VOMITING Prescribed by: SENDY CHAN on 04/28/22 07 Prednisone (Prednisone) 50 Mg Tab, 50 MG PO DAILY Prescribed by: SENDY CHAN on 04/28/22 0745 Review of Systems Constitutional: see HPI EENTM: no symptoms reported Respiratory: no symptoms reported Cardiovascular: no symptoms reported Gastrointestinal: no symptoms reported Genitourinary: no symptoms reported Musculoskeletal: back pain Skin: no symptoms reported Past Nshatsd-Dilaee-Ofnwfi Hx Immunizations Up To Date Tetanus Booster (TDap): More than 5yrs PED Vaccines UTD: No Seasonal Allergies Seasonal Allergies: Yes Past Medical History Surgeries: Yes (;LEEP PROCEDURE) Adenoidectomy, Section, Gallbladder, Hysterectomy, Tonsillectomy Respiratory: No Cardiac: No Neurological: No Reproductive Disorders: No INSEAMER History: Hysterectomy, Tubal Ligation Sexually Transmitted Disease: Yes (HPV) Genitourinary: No Gastrointestinal: No Musculoskeletal: Yes (chronic hip pain) Endocrine: No HEENT: Yes (GLASSES) Loss of Vision: Denies Cancer: No Psychosocial: Yes Anxiety Integumentary: No Blood Disorders: No Adverse Reaction/Blood Tranf: No (N/A) Family Medical History No Pertinent Family Hx Physical Exam Vital Signs Vital Signs - First Documented 04/28/22 05:37 Temp 35.8 Pulse 71 Resp 18 B/P (MAP) 160/104 (122) Capillary Refill : Less Than 3 Seconds Height, Weight, BMI Height: 5'4.00" Weight: 240lbs. 2.0oz. [id number]; 39.00 BMI Method:Stated General Appearance: WD/WN, Anxious, Severe Distress HEENT: PERRL/EOMI Neck: Normal Inspection Cardiovascular: Regular Rate, Rhythm Respiratory: Lungs Clear, Normal Breath Sounds, No Accessory Muscle Use, No Respiratory Distress Gastrointestinal: Non Tender, Soft Back: Normal Inspection, Other (tenderness over the posterior superior iliac crest, no erythema no swelling; ) Extremity: Normal Inspection, Normal Range of Motion Neurologic/Psychiatric: Alert, Oriented x3, No Motor/Sensory Deficits, Normal Mood/Affect, Motor Weakness (bilateral LE due to pain) Skin: Normal Color, Warm/Dry Progress/Results/Core Measures Results/Orders My Orders Orders - SENDY CHAN MD Ketorolac Injection (Toradol Injection) (04/28/22 06:30) Orphenadrine Inj (Ed Only) (Norflex Inje (04/28/22 06:30) Prednisone Tablet (Deltasone Tablet) (04/28/22 06:30) Ondansetron Oral Dissolve Tab (Zofran (04/28/22 06:18) Hydrocodone/Apap 7.5/325 Tab (Lortab 7. (04/28/22 07:45) Medications Given in ED Vital Signs/I&O 04/28/22 05:37 Temp 35.8 Pulse 71 Resp 18 B/P (MAP) 160/104 (122) Blood Pressure Mean: 122 Progress Progress Note : Time: 08:29 Progress Note Patient seen and examined, 36-year-old with low back pain status post fall onto her knees several days ago. Patient states the pain suddenly worsened last evening. Evaluation today includes physical exam. She has tenderness over the posterior superior iliac crest bilaterally. No erythema, swelling, step-offs or other abnormalities are palpated. She has no radicular findings, radiation of the pain down either leg. No bowel or bladder incontinence. No saddle anesthesia. Strength to the bilateral lower extremities is limited due to pain in the back. Normal sensation in the feet. No clinical indications at this time for emergent imaging such as CT or MRI. She was treated with hydrocodone 7.5 mg, 50 of oral prednisone, 60 of Toradol IM and 60 of Norflex. She was also given Zofran for nausea. Patient was reassessed twice after medications and states that she does not feel any better, she is up walking around the room. The second reassessment she said "my eyes are heavy so I feel like I can tolerate it better". She seems frustrated and desires discharge. Will order a lidocaine patch and have advised her to use these as well [id number]. Also alternate heat and ice. Follow-up with primary care is instructed. Return precautions provided. Departure Impression Primary Impression: Low back pain Qualified Codes: M54.50 - Low back pain, unspecified Disposition: 01 HOME, SELF-CARE Condition: Stable Departure-Patient Inst. Decision time for Depature: 08:31 Referrals: [facility] [place] (PCP) Primary Care Physician NO,LOCAL PHYSICIAN (Family) Primary Care Physician Patient Instructions: Low Back Pain in Adults Add. Discharge Instructions: Use the Hydrocodone every 6 [address] as needed[address] not drive and take this medication. You should take a stool softener daily while taking hydrocodone. Muscle relaxers every 8 hours for spasm. Ondansetron as needed for nausea. Prednisone daily for 5 days. You have been given your first dose here in the ER. If you have worsening pain that is radiating down your legs, numbness on your groin, loss of bowel or bladder function, please come back to the Emergency Depa rtment for re-evaluation. Please follow up with your primary care doctor this week. Scripts Ondansetron (Ondansetron Odt) 4 Mg Tab.rapdis 4 MG SL Q8H PRN for NAUSEA/VOMITING, #12 TAB Prov: SENDY CHAN MD 04/28/22 Prednisone (Prednisone) 50 Mg Tab 50 MG PO DAILY, #5 TAB Prov: SENDY CHAN MD 04/28/22 Methocarbamol (Methocarbamol) 750 Mg Tablet 1500 MG PO Q8H for Back Pain, #20 TAB Prov: SENDY CHAN MD 04/28/22 Hydrocodone/Acetaminophen (Hydrocodone-Acetamin 5-325 mg) 5 Mg-325 Mg Tablet 1 TAB PO Q6H PRN for PAIN-MODERATE (5-7), #12 TAB Prov: SENDY CHAN MD 04/28/22 Work/School Note: Work Release Form Date Seen in the Emergency Department: Apr 28, 2022 Return to Work: Apr 30, 2022 Copy Copies To 1: DENNIS JACOBS KATHRYN M MD Apr 28, 2022 06:12
[2022-04-28] MEDS ORDERED: ONDANSETRON 4 MG (ZOFRAN) ORAL DISSOLVE TAB PO STA (06:18)
[2022-04-28] MEDS ORDERED: predniSONE 20 MG TAB PO ONE (06:30)
[2022-04-28] MEDS ORDERED: ORPHENADRINE 60 MG/2 ML (NORFLEX) AMP (ED ONLY) IM ONE (06:30)
[2022-04-28] MEDS ORDERED: KETOROLAC 60 MG/2 ML VIAL IM ONE (06:30)
[2022-04-28] MEDS ORDERED: ONDA4TAB11 SL (07:45)
[2022-04-28] MEDS ORDERED: PRD50T PO (07:45)
[2022-04-28] MEDS ORDERED: HYDROcodone/APAP 7.5 MG/325 MG (LORTAB, LORCET PLUS) TABLET PO ONE (07:45)
[2022-04-28] MEDS ORDERED: METH-732 PO (07:45)
[2022-04-28] MEDS ORDERED: ACHD5005 PO (07:45)
== END 2022-04-28 08:47 | disposition home or self-care (01) ==
LOC: EDUNIT# 05:28 → ER 05:32
DX: M54.50 Low back pain, unspecified (principal); Z88.5 Allergy status to narcotic agent; Z28.310 Unvaccinated for COVID-19; W01.0XXA Fall on same level from slipping, tripping and stumbling without subsequent striking against object, initial encounter
CPT/HCPCS: 99283